=== PATIENT | male | born 1985 | race Caucasian/White ===

== ENCOUNTER 2017-05-31 12:50 | Inpatient (IN) | payer SELFPAY ==
[~2017-05-31] VITALS: Ht 160 cm; Wt 74.9 kg
[2017-05-31 12:52] VITALS: BP 115/72; PULSE 96; RESP 16; TEMP 99.4; O2SAT 97
[2017-05-31 15:14] LABS: AUTOMATED NEUTROPHIL # 28.3 TH/MM3 (1.8-7.7); BASOPHIL % 0.2 % (0.0-2.0); EOSINOPHIL % 0.1 % (0.0-4.0); HEMATOCRIT 42.3 % (39.0-51.0); LYMPH % 4.2 % (9.0-44.0); LYMPHOCYTE # 1.3 TH/MM3 (1.0-4.8); MEAN CELL VOLUME 90.6 FL (80.0-100.0); MEAN CORPUSCULAR HEMOGLOBIN 29.9 PG (27.0-34.0); MONO % 3.9 % (0.0-8.0); NEUT % 91.6 % (16.0-70.0); PLATELET COUNT 426 TH/MM3 (150-450); RED BLOOD COUNT 4.67 MIL/MM3 (4.50-5.90); RED CELL DISTRIBUTION WIDTH 13.8 % (11.6-17.2); WHITE BLOOD COUNT 30.8 TH/MM3 (4.0-11.0)
[2017-05-31 15:15] LABS: HEMO FLAGS AUTO DIFF
[2017-05-31 15:21] LABS: ALT (GPT) 49 U/L (12-78); ANION GAP 7 MEQ/L (5-15); AST (GOT) 62 U/L (15-37); BICARBONATE 32.6 MEQ/L (21.0-32.0); BLOOD UREA NITROGEN 10 MG/DL (7-18); CHLORIDE 86 MEQ/L (98-107); GLOMERULAR FILTRATION RATE 90 ML/MIN (>89); POTASSIUM 3.1 MEQ/L (3.5-5.1); SODIUM (NA) 126 MEQ/L (136-145)
[2017-05-31 15:24] LABS: ALKALINE PHOSPHATASE 333 U/L (45-117); TOTAL BILIRUBIN ADULT 3.5 MG/DL (0.2-1.0)
--- NOTE | 2017-05-31 15:46 | PD ---
HPI Chief Complaint: Skin Problem Time Seen by Provider: 15:32 Travel History International Travel<30 days: No Contact w/Intl Traveler<30days: No Traveled to known affect area: No History of Present Illness HPI This is a 32-year-old male, who presents today with complaints of right lower extremity pain swelling and warmth 10 days. Patient states it started with slight redness and has increased in size as well as pain level. The patient denies any fevers, chills. 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 There are no other complaints time my examination. [facility] Past Medical History Medical History: Denies Significant Hx Tetanus Vaccination: Unknown Past Surgical History Surgical History: No Previous Surgery Social History Alcohol Use: Yes (occasional) Tobacco Use: No Substance Use: No Allergies-Medications (Allergen,Severity, Reaction): Coded Allergies: No Known Allergies (Unverified , 05/31/17) Reported Meds & Prescriptions Reported Meds & Active Scripts Active No Active Prescriptions or Reported Medications Review of Systems Except as stated in HPI: all other systems reviewed are Neg General / Constitutional: No: Fever, Chills HENT: No: Headaches, Lightheadedness Cardiovascular: No: Chest Pain or Discomfort, Palpitations Respiratory: No: Cough, Shortness of Breath Gastrointestinal: No: Nausea, Vomiting Genitourinary: No: Frequency, Dysuria Musculoskeletal: Positive: Edema (right lower extremity), Pain (right lower extremity) Skin: Positive Change in Pigmentation, Positive Lesions (vesicles of the right lower extremity) Neurologic: No: Weakness, Dizziness, Headache Psychiatric: No: Substance Abuse (denies) Physical Exam Narrative GENERAL: Well-developed well-nourished male in no acute respiratory distress. SKIN: Focused skin exam on the patient's right lower shimmy shows significant edema with vesicular findings on the anterior tib-fib distribution. The patient has warmth to the touch. It appears to be cellulitic in nature. Cap refill is less than 3 seconds on his toes. He does have palpable dorsalis pedis pulses. HEAD: Atraumatic. Normocephalic. EYES: Pupils equal and round. Mild scleral icterus. No injection or drainage. ENT: No nasal bleeding or discharge. Mucous membranes pink and moist. NECK: Trachea midline. Supple CARDIOVASCULAR: Regular rate and rhythm. No murmur appreciated. RESPIRATORY: No accessory muscle use. Clear to auscultation. Breath sounds equal bilaterally. GASTROINTESTINAL: Abdomen soft, non-tender, nondistended. Hepatic and splenic margins not palpable. MUSCULOSKELETAL: No obvious deformities. Edema, warmth, redness of the right lower extremity from the knee below. NEUROLOGICAL: Awake and alert. No obvious cranial nerve deficits. Motor grossly within normal limits. 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 PSYCHIATRIC: Appropriate mood and affect; insight and judgment normal. Data Data Last Documented VS Vital Signs Date Time Temp Pulse Resp B/P (MAP) Pulse Ox O2 Delivery O2 Flow Rate FiO2 05/31/17 12:52 99.4 96 16 115/72 (86) 97 Orders Orders Complete Blood Count With Diff (05/31/17 13:48) Comprehensive Metabolic Panel (05/31/17 13:48) Lactic Acid Sepsis Protocol (05/31/17 13:48) Blood Culture (05/31/17 13:48) Iv Access Insert/Monitor (05/31/17 13:48) Vancomycin Inj (Vancomycin Inj) (05/31/17 16:00) Tetanus/Diphtheria Tox Adult (Tetanus/Di (05/31/17 16:00) Us Leg Venous Doppler (05/31/17 16:01) Admit Order (Ed Use Only) (05/31/17 16:08) Labs Laboratory Tests Test 05/31/17 14:20 05/31/17 14:22 White Blood Count 30.8 TH/MM3 Red Blood Count 4.67 MIL/MM3 Hemoglobin 14.0 GM/DL Hematocrit 42.3 % Mean Corpuscular Volume 90.6 FL Mean Corpuscular Hemoglobin 29.9 PG Mean Corpuscular Hemoglobin Concent 33.0 % Red Cell Distribution Width 13.8 % Platelet Count 426 TH/MM3 Mean Platelet Volume 8.6 FL Neutrophils (%) (Auto) 91.6 % Lymphocytes (%) (Auto) 4.2 % Monocytes (%) (Auto) 3.9 % Eosinophils (%) (Auto) 0.1 % Basophils (%) (Auto) 0.2 % Neutrophils # (Auto) 28.3 TH/MM3 Lymphocytes # (Auto) 1.3 TH/MM3 Monocytes # (Auto) 1.2 TH/MM3 Eosinophils # (Auto) 0.0 TH/MM3 Basophils # (Auto) 0.0 TH/MM3 CBC Comment AUTO DIFF Blood Urea Nitrogen 10 MG/DL Creatinine 0.96 MG/DL Random Glucose 113 MG/DL Total Protein 8.0 GM/DL Albumin 1.9 GM/DL Calcium Level 8.2 MG/DL Alkaline Phosphatase 333 U/L Aspartate Amino Transf (AST/SGOT) 62 U/L Alanine Aminotransferase (ALT/SGPT) 49 U/L Total Bilirubin 3.5 MG/DL Sodium Level 126 MEQ/L Potassium Level 3.1 MEQ/L Chloride Level 86 MEQ/L Carbon Dioxide Level 32.6 MEQ/L Anion Gap 7 MEQ/L Estimat Glomerular Filtration Rate 90 ML/MIN Lactic Acid Level 2.4 mmol/L [facility] Medical Decision Making Medical Screen Exam Complete: Yes Emergency Medical Condition: Yes Differential Diagnosis Cellulitis versus DVT versus lymphedema Narrative Course 32-year-old male presents with right lower extremity redness warmth and swelling. The patient has an obvious cellulitis. The patient's white count 33, 000. Cultures are pending at this time. I will start him on vancomycin. There is a call out to the admitting service for admission. Sepsis Criteria SIRS Criteria (2 or more): Heart rate over 90, WBC > 11716, < 4000 or > 10% bands Sepsis Criteria (SIRS+source): Infect source susp/known Severe Sepsis (+one): Lactate >2 Diagnosis Primary Impression: Sepsis Additional Impressions: Cellulitis of right lower extremity Leukocytosis Hyponatremia Hypokalemia Scripts No Active Prescriptions or Reported Meds Tyrese Ulloa MD May 31, 2017 15:46
[2017-05-31] MEDS ORDERED: TETANUS/DIPHTHERIA TOXOID ADULT 0.5 ML VIAL IM ONE (16:00)
[2017-05-31] MEDS ORDERED: VANCOMYCIN INJ 1,000 MG in SODIUM CHLOR 0.9% 250 ML INJ 250 ML IV ONE (16:00)
--- NOTE | 2017-05-31 16:18 | HHI.HP ---
HPI Service Family Medicine Primary Care Physician No Primary Care Physician Admission Diagnosis right lower extremity cellulitis, hyponatremia, hypokalemia Diagnoses: International Travel<30 Days: No Contact w/Intl Traveler<30days: No Known Affected Area: No History of Present Illness Patient is a 32 year old man presenting to the ED for evaluation of right lower extremity redness and swelling. He states the Thursday before last he started feeling pain in his right leg around 7pm. He did not notice erythema or swelling at this time. He went to work on thursday and noticed swelling and could not continue working due to worsening pain. He denies any trauma, cuts, or abrasions to the right leg. He states last Thursday patient was taken to [facility] and patient was sent home with medication for pain control however states was not sent home with any antibiotics to take. He endorses intermittent subjective fevers recently. He denies any previous history of cellulitis. Denies h/o of blood clots. He states he has not had any pus or other drainage anywhere along his right leg. Currently he states his pain is 10/ 10. (Eugene Ellis MD R2) Review of Systems Constitutional: COMPLAINS OF: Fever, DENIES: Dizziness Respiratory: DENIES: Cough, Sputum production, Shortness of breath Cardiovascular: COMPLAINS OF: Lower Extremity Edema, DENIES: Chest pain, Palpitations Gastrointestinal: DENIES: Abdominal pain, Black stools, Bloody stools, Constipation, Diarrhea, Nausea, Vomiting Genitourinary: DENIES: Hematuria, Dysuria Neurologic: DENIES: Headache (Eugene Ellis MD R2) Past Family Social History Past Medical History Patient without a previous PCP No medical history to report Past Surgical History Denies (Eugene Ellis MD R2) Allergies: Coded Allergies: No Known Allergies (Unverified , 05/31/17) Family History Pt states mother and father are both healthy Social History Tobacco: denies Etoh: social occasions only Illicit drug use: denies Lives at home with cousin and two other friends (Eugene Ellis MD R2) Physical Exam Vital Signs Vital Signs Date Time Temp Pulse Resp B/P (MAP) Pulse Ox O2 Delivery O2 Flow Rate FiO2 05/31/17 12:52 99.4 96 16 115/72 (86) 97 Physical Exam GENERAL: NAD, lying comfortably in bed NEURO: Alert. 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 Motor grossly normal. SKIN: Warm and dry. Significant redness of right lower extremity from mid thigh down to mid right foot. No active drainage or open wounds anywhere. 2+ edema of RLE. Painful to palpation. Several papular types lesions present throughout right lower extremity erythema. LLE without lesions. HEAD: Normocephalic. Atraumatic. EYES: PERRL. EOMI. No scleral icterus. No injection or drainage. ENT: No nasal drainage. Moist mucous membranes. No oral ulcers or lesions. NECK: Supple, trachea midline. No JVD or lymphadenopathy. CARDIOVASCULAR: Regular rate and rhythm without murmurs, rubs, or gallops. Peripheral pulses 2+. Capillary refill < 2 seconds. RESPIRATORY: Breath sounds clear to auscultation and equal bilaterally, without wheezes, rales, or rhonchi. No accessory muscle use. GASTROINTESTINAL: Abdomen soft, nontender, nondistended, normal BS. No organomegaly or masses. No rebound tenderness. No guarding. MUSCULOSKELETAL: No lower extremity edema. Normal range of motion. BACK: Nontender without obvious deformity. Laboratory Laboratory Tests Test 05/31/17 14:20 05/31/17 14:22 White Blood Count 30.8 Red Blood Count 4.67 Hemoglobin 14.0 Hematocrit 42.3 Mean Corpuscular Volume 90.6 Mean Corpuscular Hemoglobin 29.9 Mean Corpuscular Hemoglobin Concent 33.0 Red Cell Distribution Width 13.8 Platelet Count 426 Mean Platelet Volume 8.6 Neutrophils (%) (Auto) 91.6 Lymphocytes (%) (Auto) 4.2 Monocytes (%) (Auto) 3.9 Eosinophils (%) (Auto) 0.1 Basophils (%) (Auto) 0.2 Neutrophils # (Auto) 28.3 Lymphocytes # (Auto) 1.3 Monocytes # (Auto) 1.2 Eosinophils # (Auto) 0.0 Basophils # (Auto) 0.0 CBC Comment AUTO DIFF Blood Urea Nitrogen 10 Creatinine 0.96 Random Glucose 113 Total Protein 8.0 Albumin 1.9 Calcium Level 8.2 Alkaline Phosphatase 333 Aspartate Amino Transf (AST/SGOT) 62 Alanine Aminotransferase (ALT/SGPT) 49 Total Bilirubin 3.5 Sodium Level 126 Potassium Level 3.1 Chloride Level 86 Carbon Dioxide Level 32.6 Anion Gap 7 Estimat Glomerular Filtration Rate 90 Lactic Acid Level 2.4 Date/Time Source Procedure Growth Status 05/31/17 14:21 Blood Peripheral Aerobic Blood Culture Pending Received 05/31/17 14:21 Blood Peripheral Anaerobic Blood Culture Pending Received (Eugene Ellis MD R2) Result Diagram: 05/31/17 1420 05/31/17 1420 Septic Shock Reassessment Heart: Regular rate and rhythm Lungs: Clear Skin: Warm, Dry Peripheral Pulses: Bounding Right Radial Bounding Left Radial Bounding Right Dorsalis Pedis Bounding Left Dorsalis Pedis Bounding Right Posterior Tibial Bounding Left Posterior Tibial Capillary Refill: <2 seconds (Eugene Ellis MD R2) Caprini VTE Risk Assessment Caprini VTE Risk Assessment: No/Low Risk (score <= 1) Caprini Risk Assessment Model Point Value = 1 Point Value = 2 Point Value = 3 Point Value = 5 Age 41-60 Minor surgery BMI > 25 kg/m2 Swollen legs Varicose veins or History of unexplained or recurrent spontaneous Oral contraceptives or hormone replacement Sepsis (< 1 month) Serious lung disease, including pneumonia (< 1 month) Abnormal pulmonary function Acute myocardial infarction Congestive heart failure (< 1 month) History of inflammatory bowel disease Medical patient at bed rest Age 61-74 Arthroscopic surgery Major open surgery (> 45 min) Laparoscopic surgery (> 45 min) Malignancy Confined to bed (> 72 hours) Immobilizing plaster cast Central venous access Age >= 75 History of VTE Family history of VTE Factor V Leiden Prothrombin [id number] Lupus anticoagulant Anticardiolipin antibodies Elevated serum homocysteine Heparin-induced thrombocytopenia Other congenital or acquired thrombophilia Stroke (< 1 month) Elective arthroplasty Hip, pelvis, or leg fracture Acute spinal cord injury (< 1 month) Prophylaxis Regimen Total Risk Factor Score Risk Level Prophylaxis Regimen 0-1 Low Early ambulation 2 Moderate Order ONE of the following: *Sequential Compression Device (SCD) *Heparin 5000 units SQ BID 3-4 Higher Order ONE of the following medications: *Heparin 5000 units SQ TID *Enoxaparin/Lovenox 40 mg SQ daily (WT < 150 kg, CrCl > 30 mL/min) *Enoxaparin/Lovenox 30 mg SQ daily (WT < 150 kg, CrCl > 10-29 mL/min) *Enoxaparin/Lovenox 30 mg SQ BID (WT < 150 kg, CrCl > 30 mL/min) AND/OR *Sequential Compression Device (SCD) 5 or more Highest Order ONE of the following medications: *Heparin 5000 units SQ TID (Preferred with Epidurals) *Enoxaparin/Lovenox 40 mg SQ daily (WT < 150 kg, CrCl > 30 mL/min) *Enoxaparin/Lovenox 30 mg SQ daily (WT < 150 kg, CrCl > 10-29 mL/min) *Enoxaparin/Lovenox 30 mg SQ BID (WT < 150 kg, CrCl > 30 mL/min) AND *Sequential Compression Device (SCD) (Eugene Ellis MD R2) Assessment and Plan Assessment and Plan 32 year old man being admitted with sepsis due to right lower extremity cellulitis. Code Status Full code Discussed Condition With Dr. Bruno (Eugene Ellis MD R2) Attending Attestation THIS CASE WAS DISCUSSED WITH THE RESIDENT PHYSICIANS. I HAVE REVIEWED THE RECORD AND AGREE WITH THE ABOVE NOTE AND PLAN OF CARE WAS DISCUSSED. I HAVE AUTHORIZED THE ORDER FOR ADMISSION TO AN IN-PATIENT STATUS. (Chyna Copeland MD) Problem List: (1) Sepsis ICD Codes: A41.9 - Sepsis, unspecified organism Status: Acute Plan: Patient meeting sepsis criteria on admission source due to right lower extremity cellulitis s/p 1L NS bolus in ED Continue NS at 150 cc/hr Patient started on Vancomycin, dosing per pharmacy consult (2) Cellulitis of right lower extremity ICD Codes: L03.115 - Cellulitis of right lower limb Status: Acute Plan: Plan as above Pain control: - [place] 5/325 po q4h prn pain 1-5; 10/325 q4h prn pain 6-10 - Morphine 4 mg IV q3h prn breakthrough pain Bowel regimen ordered (3) Hyponatremia ICD Codes: E87.1 - Hypo-osmolality and hyponatremia Status: Acute Plan: - NS at 150 cc/hr - Continue to monitor electrolytes (4) Hypokalemia ICD Codes: E87.6 - Hypokalemia Status: Acute Plan: K+ 3.1 on admission, repleted orally with 40 mEq KCL Continue to monitor (5) Nutrition, metabolism, and development symptoms ICD Codes: R63.8 - Other symptoms and signs concerning food and fluid intake Plan: Fluids: NS at 150 cc/hr Electrolytes: plan as above, continue to monitor Nutrition: Regular DVT ppx: Lovenox 40 mg sq q24h (Eugene Ellis MD R2) Physician Certification 2 Midnight Certification Type: Admission for Inpatient Services Order for Inpatient Services The services are ordered in accordance with Medicare regulations or non- Medicare payer requirements, as applicable. In the case of services not specified as inpatient-only, they are appropriately provided as inpatient services in accordance with the 2-midnight benchmark. Estimated LOS (days): 2 days is the estimated time the patient will need to remain in the hospital, assuming treatment plan goals are met and no additional complications. Post-Hospital Plan: Home (Eugene Ellis MD R2) 2 Midnight Certification Type: Admission for Inpatient Services Post-Hospital Plan: Home (Chyna Copeland MD) Eugene Ellis MD R2 May 31, 2017 16:18 Chyna Copeland MD Jun 01, 2017 13:32
[2017-05-31 16:29] LABS: BANDS 5 % (0-6); POLYS (SEG NEUTROPHILS) 89 % (16-70); SCAN/DIFF FINAL DIFF MANUAL; WBC DIFF SAMPLE 100
[2017-05-31 16:30] VITALS: BP 111/61; PULSE 91; RESP 17; O2SAT 97
[2017-05-31 16:52] LABS: LACTIC ACID GHOST NOT REPORTABLE
[2017-05-31] MEDS ORDERED: SENNOSIDES 8.6 MG TAB PO PRN (17:00)
[2017-05-31] MEDS ORDERED: NALOXONE HCL 0.4 MG/ML AMP IV PUSH PRN (17:00)
[2017-05-31] MEDS ORDERED: MAGNESIUM HYDROXIDE SUSP 30 ML CUP PO PRN (17:00)
[2017-05-31] MEDS ORDERED: Vancomycin Consult Pharmacy 1 EA OTHER SCH (17:00)
[2017-05-31] MEDS ORDERED: LACTULOSE SYRUP 20 GM/30 ML CUP PO PRN (17:00)
[2017-05-31] MEDS ORDERED: ONDANSETRON HCL 4 MG/2 ML VIAL IVP PRN (17:00)
[2017-05-31] MEDS ORDERED: SODIUM CHLORIDE 0.9% FLUSH 10 ML FLUSH IV FLUSH PRN (17:00)
[2017-05-31] MEDS ORDERED: BISACODYL 10 MG SUPP RECTAL PRN (17:00)
[2017-05-31] MEDS ORDERED: SODIUM CHLOR 0.9% 1000 ML INJ 1,000 ML IV ONE (17:00)
[2017-05-31] MEDS ORDERED: ACETAMINOPHEN 325 MG TAB PO PRN (17:00)
[2017-05-31] MEDS: ENOXAPARIN SODIUM 40 MG/0.4 ML SYRINGE SQ SCH (17:00)
[2017-05-31] MEDS ORDERED: ACETAMINOPHEN/HYDROcodone 325 MG/5 MG TAB PO PRN (17:00)
[2017-05-31 17:45] VITALS: BP 110/57; PULSE 86; RESP 16; TEMP 100.6; O2SAT 99
--- NOTE | 2017-05-31 18:22 | RADRPT ---
EXAM DATE/TIME: 05/31/2017 17:35 [facility] COMPARISON: No previous studies available for comparison. INDICATIONS : Right leg swelling and pain. MEDICAL HISTORY : Right leg swelling and pain. SURGICAL HISTORY : None. ENCOUNTER: Initial ACUITY: 2 weeks PAIN SCORE: 6/10 LOCATION: Right leg. TECHNIQUE: Venous ultrasound of the leg was performed from the inguinal ligament to the proximal calf. Real-nathaly e, color Doppler and spectral tracing, compression and augmentation techniques were used. FINDINGS: There is normal compressibility of the deep venous system from the inguinal region to the proximal ca lf. No echogenic clot is seen in the lumen of the common femoral, femoral, popliteal, and posterior tibial veins. There is a normal response of the venous system to proximal and distal augmentation an d respiration. An enlarged lymph node is identified in the right inguinal region measuring 5.4 x 2.8 x 1.6 cm in siz e. CONCLUSION: No evidence of DVT. Right inguinal lymphadenopathy. Justin Vázquez MD on May 31, 2017 at 18:19 Board Certified Radiologist. This report was verified electronically.
[2017-05-31] MEDS ORDERED: POTASSIUM CHLORIDE 10 MEQ CONTROLLED RELEASE TAB PO ONE (18:30)
[2017-05-31 18:52] VITALS: PULSE 84
[2017-05-31] MEDS ORDERED: VANCOMYCIN 1,000 MG/NS 250 ML IV ONE ×2 (19:00)
[2017-05-31 19:57] VITALS: PULSE 84
[2017-05-31 20:00] VITALS: BP 119/59; PULSE 84; RESP 16; TEMP 98.2; O2SAT 99
[2017-05-31] MEDS: ACETAMINOPHEN/HYDROcodone 325 MG/10 MG TAB PO PRN (21:07)
[2017-05-31] MEDS: DOCUSATE SODIUM 50 MG/SENNA 8.6 MG TAB PO SCH (21:07)
[2017-05-31] MEDS: SODIUM CHLORIDE 0.9% FLUSH 10 ML FLUSH IV FLUSH SCH (21:08)
[2017-05-31] MEDS: SODIUM CHLOR 0.9% 1000 ML INJ 1,000 ML IV SCH (21:08)
[2017-06-01] VITALS (8 sets, daily range): BP systolic 97–120; BP diastolic 55–72; PULSE 67–89; RESP 16–18; TEMP 97.5–101; O2SAT 96–100
[2017-06-01] MEDS: SODIUM CHLOR 0.9% 1000 ML INJ 1,000 ML IV SCH ×3 (00:18→15:01)
[2017-06-01] MEDS ORDERED: VANCOMYCIN INJ 1,000 MG in SODIUM CHLOR 0.9% 250 ML INJ 250 ML IV SCH (04:00)
[2017-06-01] MEDS: VANCOMYCIN INJ 1,250 MG in SODIUM CHLOR 0.9% 250 ML INJ 250 ML IV SCH ×2 (05:40→22:24)
[2017-06-01] MEDS: ACETAMINOPHEN/HYDROcodone 325 MG/10 MG TAB PO PRN ×3 (05:41→18:04)
[2017-06-01 07:51] LABS: AUTOMATED NEUTROPHIL # 20.5 TH/MM3 (1.8-7.7); BASOPHIL % 0.2 % (0.0-2.0); EOSINOPHIL # 0.2 TH/MM3 (0-0.4); EOSINOPHIL % 0.9 % (0.0-4.0); HEMATOCRIT 35.4 % (39.0-51.0); LYMPH % 4.5 % (9.0-44.0); MEAN CELL VOLUME 90.9 FL (80.0-100.0); MEAN CORPUSCULAR HEMOGLOBIN 30.7 PG (27.0-34.0); MEAN CORPUSCULAR HGB CONC 33.8 % (32.0-36.0); MONO % 4.4 % (0.0-8.0); PLATELET COUNT 408 TH/MM3 (150-450); RED CELL DISTRIBUTION WIDTH 13.9 % (11.6-17.2); WHITE BLOOD COUNT 22.7 TH/MM3 (4.0-11.0)
[2017-06-01 07:57] LABS: HEMO FLAGS AUTO DIFF
[2017-06-01 08:20] LABS: BANDS 18 % (0-6); EOSINOPHILS 1 % (0-4); MYELOCYTES 1 % (0-0); NEUTROPHIL # MANUAL DIFF 20.9 TH/MM3 (1.8-7.7); PLATELET ESTIMATE SMEAR NORMAL (NORMAL); PLATELET MORPHOLOGY NORMAL (NORMAL); POLYS (SEG NEUTROPHILS) 73 % (16-70); SCAN/DIFF FINAL DIFF MANUAL; WBC DIFF SAMPLE 100
[2017-06-01 08:21] LABS: BICARBONATE 31.7 MEQ/L (21.0-32.0); POTASSIUM 3.2 MEQ/L (3.5-5.1)
[2017-06-01] MEDS: DOCUSATE SODIUM 50 MG/SENNA 8.6 MG TAB PO SCH ×2 (08:39→21:12)
[2017-06-01] MEDS: SODIUM CHLORIDE 0.9% FLUSH 10 ML FLUSH IV FLUSH SCH ×2 (08:39→21:00)
[2017-06-01] MEDS ORDERED: POTASSIUM CHLORIDE 10 MEQ CONTROLLED RELEASE TAB PO ONE (08:45)
[2017-06-01] MEDS ORDERED: PIPERACIL-TAZO 4.5 GM PREMIX 100 ML IV SCH (11:00)
--- NOTE | 2017-06-01 11:52 | HHI.FPPN ---
Problem Problem List: (1) Cellulitis of right lower extremity (2) Sepsis (3) Leukocytosis (4) Hyponatremia (5) Hypokalemia Subjective Subjective 32 year old male admitted for cellulitis meeting SIRS criteria -- on the right LE -- ongoing for about 10 days with worsening redness, spread and severe pain. Denies any trauma or feverss. Patient was placed on vanc at admission with minimal improvment in his symptoms. No worsening pain since admission. No chest pain, no SOB Review of Systems negative except as above Past Family Social History Past Medical History Patient without a previous PCP No medical history to report Past Surgical History Denies Allergies: Coded Allergies: No Known Allergies (Unverified , 05/31/17) Family History Pt states mother and father are both healthy Social History Tobacco: denies Etoh: social occasions only Illicit drug use: denies Lives at home with cousin and two other friends [facility] Objective Objective Laboratory Tests - Abnormals Test 05/31/17 14:20 05/31/17 14:22 05/31/17 17:45 06/01/17 06:40 White Blood Count 30.8 TH/MM3 22.7 TH/MM3 Neutrophils (%) (Auto) 91.6 % 90.0 % Lymphocytes (%) (Auto) 4.2 % 4.5 % Neutrophils # (Auto) 28.3 TH/MM3 20.5 TH/MM3 Monocytes # (Auto) 1.2 TH/MM3 1.0 TH/MM3 Neutrophils % (Manual) 89 % 73 % Lymphocytes % 3 % 4 % Neutrophils # (Manual) 29.0 TH/MM3 20.9 TH/MM3 Random Glucose 113 MG/DL Albumin 1.9 GM/DL Calcium Level 8.2 MG/DL 7.8 MG/DL Alkaline Phosphatase 333 U/L Aspartate Amino Transf (AST/SGOT) 62 U/L Total Bilirubin 3.5 MG/DL Sodium Level 126 MEQ/L 134 MEQ/L Potassium Level 3.1 MEQ/L 3.2 MEQ/L Chloride Level 86 MEQ/L 95 MEQ/L Carbon Dioxide Level 32.6 MEQ/L Lactic Acid Level 2.4 mmol/L Red Blood Count 3.90 MIL/MM3 Hemoglobin 12.0 GM/DL Hematocrit 35.4 % Band Neutrophils % 18 % Myelocytes 1 % Vital Signs 05/31/17 05/31/17 05/31/17 05/31/17 12:52 16:30 17:45 18:52 Temp 99.4 100.6 Pulse 96 91 86 84 Resp 16 17 16 B/P (MAP) 115/72 (86) 111/61 (78) 110/57 (74) Pulse Ox 97 97 99 O2 Delivery Room Air 05/31/17 05/31/17 05/31/17 06/01/17 19:57 20:00 20:00 00:00 Temp 98.2 97.5 Pulse 84 84 67 Resp 16 16 B/P (MAP) 119/59 (79) 97/55 (69) Pulse Ox 99 100 O2 Delivery Room Air 06/01/17 06/01/17 06/01/17 06/01/17 00:00 04:00 04:00 08:02 Temp 98.0 97.9 Pulse 74 68 Resp 18 16 B/P (MAP) 101/62 (75) 103/55 (71) Pulse Ox 100 97 O2 Delivery Room Air Room Air Physical exam O. CONSTITUTIONAL/GEN: normally nourished, in NAD -- patient is Welsh speaking -- translation provided by Dr. Chinchilla EYES: conjunctiva normal, PERRLA, EOMI. ENT: Mouth and pharynx normal. NECK: thyroid midline, carotids symmetrical. LUNGS: clear A-P, respiratory effort is normal. CARDIOVASCULAR: RR without murmur or gallop. No significant edema. GI/ABD: soft without masses, without organomegaly. : no CVA tenderness , right LAD in the groin, mobile, rubbery, nontender NEURO: No focal deficits. Gait is normal HEME/LYMPH: no bruising, petechia or significant adenopathy MUSC: back is normal in appearance. Right LE with erythema, edema, warmth circumferential from the midthigh to the ankle, vesicles throughout the LE, significant swelling over the right knee, with limited flexion of the knee, no creipits but very boggy in nature, no tenseness in the tissue, right ankle with significant swelling over the medial aspect of the ankle as well. boggy, no crepitus, no true fluctuance PSYCH/MENTAL STATUS: Alert and oriented x 3. Assessment Assessment: (1) Cellulitis of right lower extremity (2) Sepsis (3) Leukocytosis (4) Hyponatremia (5) Hypokalemia Assessment 32 year old male with severe cellulitis with SIRS criteria -- minimal improvement since admission. PLAN PLAN 1. Increase the antibiotic coverage -- cont vanc and add zosyn, 2. unroofed vesicle and wound culture sent 3. CT of the leg to assess joint/bone involvement. 4. supportive care with pain meds and IVF Patient was seen and dw the resident team -- Dr. Ellis, Dr. Chinchilla, Dr. Bruno. Chyna Copeland MD Jun 01, 2017 11:52
[2017-06-01] MEDS ORDERED: diphenhydrAMINE HCL 50 MG/ML VIAL IV PUSH PRN (16:15)
[2017-06-01] MEDS: metroNIDAZOLE 500 MG INJ 100 ML IV SCH (18:04)
[2017-06-01] MEDS: ENOXAPARIN SODIUM 40 MG/0.4 ML SYRINGE SQ SCH (18:04)
[2017-06-01] MEDS ORDERED: IOHEXOL 350 MG/ML 10 ML VIAL (for RAD DIAG) IVCONTRAST ONE (19:42)
[2017-06-01] MEDS: CIPROFLOXACIN 400 MG PREMIX 200 ML IV SCH (21:12)
--- NOTE | 2017-06-01 21:37 | RADRPT ---
EXAM DATE/TIME: 06/01/2017 19:21 [facility] COMPARISON: No previous studies available for comparison. INDICATIONS : Right leg swelling for ten days IV CONTRAST: 71 cc Omnipaque 350 (iohexol) IV RADIATION DOSE: 28.32 CTDIvol (mGy) MEDICAL HISTORY : None SURGICAL HISTORY : None. ENCOUNTER: Initial ACUITY: 2 weeks PAIN SCALE: 7/10 LOCATION: Right Leg TECHNIQUE: Volumetric scanning of the tibia and fibula was performed. Using automated exposure control and adju stment of the mA and/or kV according to patient size, radiation dose was kept as low as reasonably ac hievable to obtain optimal diagnostic quality images. DICOM format image data is available [facility] for review and comparison. FINDINGS: There is an elongated anterior area of cystic loculated mass between the skin subcutaneous tissue and the muscle along the fascial plane extending from the region of the patella almost to the ankle. Thi s does abut the proximal one third of the anterior medial tibia without bony destructive change or ly tic change. There is a multiloculated inflammatory mass likely abscess. No radiopaque foreign body is noted. CONCLUSION: Elongated anterior inflammatory multiloculated cystic-type mass extending from the l evel of the knee down almost to the ankle between the subcutaneous skin tissues and muscle along the fascial plane. Appearance is that most likely of an abscess. This does abut without destructive fonseca e the bone of the tibia proximal one third anterior medially. Blaine Rivera MD on June 01, 2017 at 21:32 Board Certified Radiologist. This report was verified electronically.
[2017-06-02] VITALS (7 sets, daily range): BP systolic 113–142; BP diastolic 57–75; PULSE 76–95; RESP 16–20; TEMP 97.9–101.5; O2SAT 93–98
[2017-06-02] MEDS: metroNIDAZOLE 500 MG INJ 100 ML IV SCH ×3 (01:43→19:58)
[2017-06-02] MEDS: ACETAMINOPHEN/HYDROcodone 325 MG/10 MG TAB PO PRN ×4 (01:55→20:15)
[2017-06-02] MEDS: SODIUM CHLOR 0.9% 1000 ML INJ 1,000 ML IV SCH ×4 (03:36→16:45)
[2017-06-02] MEDS ORDERED: PHARMACY ORDERED LAB ONE (05:45)
[2017-06-02] MEDS: CIPROFLOXACIN 400 MG PREMIX 200 ML IV SCH ×2 (05:47→23:09)
[2017-06-02] MEDS: VANCOMYCIN INJ 1,250 MG in SODIUM CHLOR 0.9% 250 ML INJ 250 ML IV SCH (07:38)
[2017-06-02 08:08] LABS: AUTOMATED NEUTROPHIL # 16.3 TH/MM3 (1.8-7.7); BASOPHIL % 0.2 % (0.0-2.0); EOSINOPHIL # 0.1 TH/MM3 (0-0.4); EOSINOPHIL % 0.6 % (0.0-4.0); HEMATOCRIT 36.1 % (39.0-51.0); HEMO FLAGS DIFF FINAL; LYMPH % 5.3 % (9.0-44.0); MEAN CORPUSCULAR HGB CONC 34.1 % (32.0-36.0); MONO % 3.5 % (0.0-8.0); NEUT % 90.4 % (16.0-70.0); PLATELET COUNT 493 TH/MM3 (150-450); RED BLOOD COUNT 3.97 MIL/MM3 (4.50-5.90); RED CELL DISTRIBUTION WIDTH 13.8 % (11.6-17.2)
--- NOTE | 2017-06-02 08:27 | HHI.FPPN ---
Subjective Remarks No acute events overnight. Tmax 101.0F past 24 hours. Patient states his pain is well controlled. Denies any worsening erythema or swelling. No draining lesions. Denies chest pain, SOB. (Eugene Ellis MD R2) Objective Vitals Vital Signs Date Time Temp Pulse Resp B/P (MAP) Pulse Ox O2 Delivery O2 Flow Rate FiO2 06/02/17 05:13 97.9 76 18 119/73 (88) 96 06/02/17 00:51 99.0 78 18 122/73 (89) 96 06/01/17 21:00 Room Air 06/01/17 21:00 89 06/01/17 20:21 97.8 84 18 118/72 (87) 98 06/01/17 16:02 101.0 89 17 120/68 (85) 96 06/01/17 12:02 99.5 88 17 118/64 (82) 98 I/O 06/01/17 06/01/17 06/01/17 06/02/17 06/02/17 06/02/17 06:59 14:59 22:59 06:59 14:59 22:59 Intake Total 1480 ml 70 ml 2190 ml 2282.5 ml Output Total 1250 ml 1050 ml Balance 230 ml 70 ml 1140 ml 2282.5 ml Intake Oral 480 ml 720 ml 720 ml IV Total 1000 ml 70 ml 1470 ml 1562.5 ml Output Urine Total 1250 ml 1050 ml # Bowel Movements 0 0 (Eugene Ellis MD R2) Result Diagram: 06/02/17 0722 06/01/17 0640 Objective Remarks GEN: NAD, lying comfortably in bed EYES: conjunctiva normal, EOMI. ENT: Mouth and pharynx normal. NEURO: Alert. Speech normal, Angolan speaking, translation provided by Dr. Bruno. No focal deficits. CARDIOVASCULAR: RRR, no m/r/g. Peripheral pulses 2+ including left PT pulse. LUNGS: CTAB, no w/r/r GI: soft, nontender, nd : Right LAD in the groin, mobile, rubbery, nontender. No left inguinal LAD. HEME/LYMPH: no bruising, petechia or significant adenopathy MUSC: Right LE with erythema, edema, warmth circumferential from the mid thigh to the ankle, vesicles throughout the LE, significant swelling over the right knee, with limited flexion of the right knee seems to be more limited than prior examination yesterday, no crepitus but very boggy in nature, right ankle with significant swelling over the medial aspect of the ankle as well. Ankle is boggy, but no fluctuance or crepitus. (Eugene Ellis MD R2) A/P Assessment and Plan 32 year old man admitted with sepsis due to right lower extremity cellulitis and abscess formation. (Eugene Ellis MD R2) Attending Attestation Patient seen and examined. Case reviewed and discussed with the resident team. Agree with plan of care as discussed with me and documented in the resident note. (Chyna Copeland MD) Problem List: (1) Abscess of right lower extremity ICD Codes: L02.415 - Cutaneous abscess of right lower limb Plan: CT of right lower extremity with findings of anterior inflammatory multiloculated cystic-type mass from the knee down to ankle between subcutaneous skin tissues and muscle along fascial plane most likely abscess formation Orthopedic surgery consulted for I&D Infectious Disease consult appreciated Antibiotic history: - Vancomycin 1500 mg IV q12h, started 05/31 - Ciprofloxacin 400 mg IV q12h, started 06/01 - Flagyl 500 mg IV q8h, started 06/01 - Discontinued Zosyn 4.5gm IV one dose given on, discontinued after patient had reported mild hives-like reaction Pain control: - [place] 5/325 po q4h prn pain 1-5; 10/325 q4h prn pain 6-10 - Morphine 4 mg IV q3h prn breakthrough pain Bowel regimen ordered (2) Sepsis ICD Codes: A41.9 - Sepsis, unspecified organism Status: Acute Plan: Patient met sepsis criteria on admission source due to right lower extremity cellulitis and abscess Plan as above (3) Hyponatremia ICD Codes: E87.1 - Hypo-osmolality and hyponatremia Status: Acute Plan: - NS at 150 cc/hr - Continue to monitor electrolytes (4) Hypokalemia ICD Codes: E87.6 - Hypokalemia Status: Acute Plan: Continue to monitor, replete orally as needed (5) Nutrition, metabolism, and development symptoms ICD Codes: R63.8 - Other symptoms and signs concerning food and fluid intake Plan: Fluids: NS at 150 cc/hr Electrolytes: plan as above, continue to monitor Nutrition: Regular, NPO after MN ahead of I&D by orthopedic surgery DVT ppx: Hold ppx Lovenox today ahead of surgery tomorrow (Eugene Ellis MD R2) Eugene Ellis MD R2 Jun 02, 2017 08:27 Chyna Copeland MD Jun 02, 2017 12:44
[2017-06-02 08:32] LABS: ANION GAP 8 MEQ/L (5-15); AST (GOT) 48 U/L (15-37); BICARBONATE 31.1 MEQ/L (21.0-32.0); BLOOD UREA NITROGEN 7 MG/DL (7-18); CHLORIDE 93 MEQ/L (98-107); GLOMERULAR FILTRATION RATE 120 ML/MIN (>89); POTASSIUM 3.3 MEQ/L (3.5-5.1); SODIUM (NA) 132 MEQ/L (136-145)
[2017-06-02 08:33] LABS: ALT (GPT) 57 U/L (12-78)
[2017-06-02 08:36] LABS: ALKALINE PHOSPHATASE 268 U/L (45-117); TOTAL BILIRUBIN ADULT 1.4 MG/DL (0.2-1.0); VANCOMYCIN TROUGH 11.3 MCG/ML (5.0-10.0)
[2017-06-02] MEDS: SODIUM CHLORIDE 0.9% FLUSH 10 ML FLUSH IV FLUSH SCH ×2 (09:00→20:15)
[2017-06-02] MEDS: DOCUSATE SODIUM 50 MG/SENNA 8.6 MG TAB PO SCH ×2 (09:08→20:15)
--- NOTE | 2017-06-02 11:01 | PD.ORT.PN ---
Subjective Subjective Remarks s/p 10-14 day history of right leg pain and swelling. been managed on floor with Abx. progressing swelling and pain. reports pain in knee and difficulty bending or weight bearing. patient reports he ate breakfast at 0800. Objective Vitals Vital Signs Date Time Temp Pulse Resp B/P (MAP) Pulse Ox O2 Delivery O2 Flow Rate FiO2 06/02/17 08:00 100.0 93 18 117/65 (82) 97 06/02/17 05:13 97.9 76 18 119/73 (88) 96 06/02/17 00:51 99.0 78 18 122/73 (89) 96 06/01/17 21:00 Room Air 06/01/17 21:00 89 06/01/17 20:21 97.8 84 18 118/72 (87) 98 06/01/17 16:02 101.0 89 17 120/68 (85) 96 06/01/17 12:02 99.5 88 17 118/64 (82) 98 I/O 06/01/17 06/01/17 06/01/17 06/02/17 06/02/17 06/02/17 06:59 14:59 22:59 06:59 14:59 22:59 Intake Total 1480 ml 70 ml 2190 ml 2282.5 ml 262.5 ml Output Total 1250 ml 1050 ml Balance 230 ml 70 ml 1140 ml 2282.5 ml 262.5 ml Intake Oral 480 ml 720 ml 720 ml IV Total 1000 ml 70 ml 1470 ml 1562.5 ml 262.5 ml Output Urine Total 1250 ml 1050 ml # Bowel Movements 0 0 Result Diagram: 06/02/1772106/02/17721 Objective Remarks RLE: 3+ swelling of RLE from knee to ankle. noted erythema of leg that is clearly demarcated. noted fluctuance of prepatella bursa and proximal/midshaft tibia along medial border. noted swelling of ankle. nvi Assessment & Plan Assessment and Plan 1) Cellulitis/Abscess of Right Lower Leg -patient will need I&D of right leg. however, patient ate breakfast this AM -regular diet today and npo after MN -will plan to go to OR with either Dr Krishnamurthy or Dr Mackey tomorrow -consents given to nurse. need to be signed by patient. -formal consult to follow tomorrow Shawn Ellison Jun 02, 2017 11:01
[2017-06-02] MEDS ORDERED: POTASSIUM CHLORIDE 10 MEQ CONTROLLED RELEASE TAB PO ONE (12:15)
--- NOTE | 2017-06-02 15:31 | PD.ID.CON ---
History of Present Illness Service ID Consult Requested By Dr Mackey Reason for Consult RLE abscess Primary Care Physician No Primary Care Physician Diagnoses: History of Present Illness 32 yo luxembourgish only speaking male History obtained thru a luxembourgish sopeaking nurse 32 yo male no med history developped pain, redness and swelling of his RLE NO preceding trauma + some fever deies other c/o He was started on zosyn in ER and he developped some pruritic rash , ? hives (dw Dr Ellis) He was switched to cipto, flgyl and vanco His smx improved - per pt pain and swelling getting better an redness is less than marked borders RLE CT showed Elongated anterior inflammatory multiloculated cystic-type mass extending from the level of the knee down almost to the ankle between the subcutaneous skin tissues and muscle along the fascial plane, likely abscess He preented with WBC of 30 K which improved by today down to 18K He has liow grade fever with Tmax of 101 Ortho consulted, plan for I+D today Review of Systems Except as stated in HPI: all other systems reviewed are Neg Past Family Social History Allergies: Coded Allergies: piperacillin (Verified Allergy, Intermediate, Hives, 06/02/17) tazobactam (Verified Allergy, Intermediate, Hives, 06/02/17) Past Medical History NOne Past Surgical History none Active Ordered Medications Medications where reviewed in EMR Antibiotics Include: cipro flagyl vanco Family History reviewed non contributory Social History No Tobacco. No ETOH. No Illicit Drugs. In [place] 10 yrs, no tavel within that period Physical Exam Vital Signs Vital Signs Date Time Temp Pulse Resp B/P (MAP) Pulse Ox O2 Delivery O2 Flow Rate FiO2 06/02/17 12:00 99.2 79 20 113/61 (78) 98 06/02/17 08:00 100.0 93 18 117/65 (82) 97 06/02/17 08:00 88 06/02/17 07:00 Room Air 06/02/17 05:13 97.9 76 18 119/73 (88) 96 06/02/17 00:51 99.0 78 18 122/73 (89) 96 06/01/17 21:00 Room Air 06/01/17 21:00 89 06/01/17 20:21 97.8 84 18 118/72 (87) 98 06/01/17 16:02 101.0 89 17 120/68 (85) 96 Physical Exam CONSTITUTIONAL/GENERAL: This is an adequately nourished patient, in no apparent distress. TUBES/LINES/DRAINS: SKIN: No jaundice, rashes, or lesions. Skin temperature appropriate. Not diaphoretic. HEAD: Atraumatic. Normocephalic. EYES: Pupils equal and round and reactive. Extraocular motions intact. No scleral icterus. No injection or drainage. Fundi not examined. ENT: Hearing grossly normal. Nose without bleeding or purulent drainage. Oral mucosae moist without visible erythema, exudates, masses, or lesions. NECK: Trachea midline. Supple, nontender. CARDIOVASCULAR: Regular rate and rhythm without murmurs, gallops, or rubs. No JVD. Peripheral pulses symmetric. RESPIRATORY/CHEST: Symmetric, unlabored respirations. Clear to auscultation. Breath sounds equal bilaterally. No wheezes, rales, or rhonchi. GASTROINTESTINAL: Abdomen soft, non-tender, nondistended. No hepato-splenomegaly , or palpable masses. No guarding. Bowel sounds present. GENITOURINARY: Without palpable bladder distension. MUSCULOSKELETAL: Extremities without clubbing, cyanosis, No mottling or clubbing. STATUS LOCALIS: RLE with tight 3+ edema and erythema expanding from foot to above the knee, more prominen t posteriorly Toes well perfsed + Markedly enlarged (3-4 cm) R inguinal lymph node, tender to palpation + large effsuion of R kn ee noted LYMPHATICS: No palpable cervical axillae or supraclavicular adenopathy. Unilateral tende r R inguinal lymphadenopathy NEUROLOGICAL: Awake and alert. Motor and sensory grossly within normal limits. Follows commands. Clear speech . Moves all extremities. PSYCHIATRIC: No obvious anxiety/depression. no apparent hallucinations or other psychotic thought process. Laboratory Laboratory Tests Test 06/02/17 07:22 White Blood Count 18.0 Red Blood Count 3.97 Hemoglobin 12.3 Hematocrit 36.1 Mean Corpuscular Volume 91.0 Mean Corpuscular Hemoglobin 31.0 Mean Corpuscular Hemoglobin Concent 34.1 Red Cell Distribution Width 13.8 Platelet Count 493 Mean Platelet Volume 7.9 Neutrophils (%) (Auto) 90.4 Lymphocytes (%) (Auto) 5.3 Monocytes (%) (Auto) 3.5 Eosinophils (%) (Auto) 0.6 Basophils (%) (Auto) 0.2 Neutrophils # (Auto) 16.3 Lymphocytes # (Auto) 1.0 Monocytes # (Auto) 0.6 Eosinophils # (Auto) 0.1 Basophils # (Auto) 0.0 CBC Comment DIFF FINAL Differential Comment Blood Urea Nitrogen 7 Creatinine 0.75 Random Glucose 98 Total Protein 6.8 Albumin 1.6 Calcium Level 8.4 Alkaline Phosphatase 268 Aspartate Amino Transf (AST/SGOT) 48 Alanine Aminotransferase (ALT/SGPT) 57 Total Bilirubin 1.4 Sodium Level 132 Potassium Level 3.3 Chloride Level 93 Carbon Dioxide Level 31.1 Anion Gap 8 Estimat Glomerular Filtration Rate 120 Vancomycin Level Trough 11.3 Date/Time Source Procedure Growth Status 05/31/17 14:21 Blood Peripheral Aerobic Blood Culture - Preliminary NO GROWTH IN 2 DAYS Resulted 05/31/17 14:21 Blood Peripheral Anaerobic Blood Culture - Preliminary NO GROWTH IN 2 DAYS Resulted Result Diagram: 06/02/17 0722 06/02/17 0722 Imaging Last Impressions Lower Extremity CT 06/01/17 0000 Signed Impressions: Service Date/Time: Thursday, June 01, 2017 19:21 - CONCLUSION: Elongated anterior inflammatory multiloculated cystic-type mass extending from the level of the knee down almost to the ankle between the subcutaneous skin tissues and muscle along the fascial plane. Appearance is that most likely of an abscess. This does abut without destructive change the bone of the tibia proximal one third anterior medially. Blaine Rivera MD Lower Extremity Ultrasound 05/31/17 1601 Signed Impressions: Service Date/Time: Wednesday, May 31, 2017 17:35 - CONCLUSION: No evidence of DVT. Right inguinal lymphadenopathy. Justin Vázquez MD Assessment and Plan Assessment and Plan Complicated RLE skin and sof ttissue infection, very large abscess, no e/o bone involement - likely staph or strep - plan to OR today Leukocytosis, leukemoid reaciton of 30 K on presentation Fever High grade penicliin allergic reaction, hives - Will cont cipro, flagyl and vancomycin at this point - Agree wtj plan of ortho for I+D - further abx rec's per clx report Demetria Tate MD Jun 02, 2017 15:31
[2017-06-02] MEDS: VANCOMYCIN INJ 1,500 MG in SODIUM CHLORID 0.9% 500 ML INJ 500 ML IV SCH (16:46)
[2017-06-02] MEDS: MORPHINE SULFATE 4 MG/ML INJ IV PUSH PRN (16:51)
[2017-06-03] VITALS: BP 112/68; PULSE 88; RESP 16; TEMP 99.9; O2SAT 96
[2017-06-03] MEDS: SODIUM CHLOR 0.9% 1000 ML INJ 1,000 ML IV SCH ×2 (01:00→12:22)
[2017-06-03] MEDS: metroNIDAZOLE 500 MG INJ 100 ML IV SCH ×3 (02:08→17:35)
[2017-06-03 04:00] VITALS: BP 123/64; PULSE 94; RESP 16; TEMP 102; O2SAT 96
[2017-06-03] MEDS ORDERED: CHLORHEXIDINE GLUCONATE 2 % 1 PACK (2 CLOTHS) TOPICAL PRN (04:00)
[2017-06-03] MEDS ORDERED: LACTATED RINGER'S 1000 ML IV PRN (04:00)
[2017-06-03] MEDS ORDERED: POVIDONE IODINE 5% (ANTISEPSIS KIT) 4 APPLICATIONS EACH NARE PRN (04:00)
[2017-06-03] MEDS ORDERED: SODIUM CHLORID 0.9% 500 ML IV PRN (04:00)
[2017-06-03] MEDS ORDERED: INSULIN HUMAN REGULAR 1,000 UNITS/10 ML VIAL SQ PRN (04:00)
[2017-06-03] MEDS ORDERED: METOPROLOL TARTRATE 25 MG TAB PO PRN (04:00)
[2017-06-03] MEDS: VANCOMYCIN INJ 1,500 MG in SODIUM CHLORID 0.9% 500 ML INJ 500 ML IV SCH ×2 (04:14→15:40)
[2017-06-03] MEDS: CIPROFLOXACIN 400 MG PREMIX 200 ML IV SCH ×3 (06:35→21:41)
[2017-06-03 06:43] VITALS: TEMP 99.2
[2017-06-03] MEDS: SODIUM CHLORIDE 0.9% FLUSH 10 ML FLUSH IV FLUSH SCH ×2 (07:34→20:27)
[2017-06-03 07:43] LABS: HEMATOCRIT 34.9 % (39.0-51.0); MEAN CORPUSCULAR HEMOGLOBIN 31.2 PG (27.0-34.0); MEAN CORPUSCULAR HGB CONC 34.3 % (32.0-36.0); PLATELET COUNT 518 TH/MM3 (150-450); RED BLOOD COUNT 3.83 MIL/MM3 (4.50-5.90); RED CELL DISTRIBUTION WIDTH 13.9 % (11.6-17.2); REVIEW FLAG FINAL; WHITE BLOOD COUNT 17.9 TH/MM3 (4.0-11.0)
--- NOTE | 2017-06-03 07:45 | MB ---
cc: DENI HERNANDEZ DATE OF ADMISSION 05/31/2017 DATE OF CONSULTATION 06/03/2017 REASON FOR CONSULTATION Right leg infection and abscess. CONSULTING PHYSICIAN Dr. Chyna Malik ARTURO Vega is a 32-year-old male who presented to the emergency room with complaints of right leg pain and swelling. He had been feeling pain and swelling for approximately three days prior to presentation. He went to work on Thursday and noticed some swelling which continued to increase. He noticed redness and warmth. He initially went to [facility] and was sent home with pain medication. He says that he was not given antibiotics. He has had intermittent feelings of fevers and chills. He currently has developed fluctuance of the right leg. CT scan revealed probable abscess along the right leg. He is currently awake and alert on the 4th floor. His only complaint is his right leg. PAST MEDICAL HISTORY ILLNESSES None. SURGERIES None. ALLERGIES None. MEDICATIONS None prior to hospitalizations. Please see EMR for complete list of inpatient medications. SOCIAL HISTORY The patient denies tobacco or drug use. He drinks alcohol occasionally. He lives at home with a cousin and two roommates. FAMILY HISTORY Noncontributory. His mother and father are healthy. REVIEW OF SYSTEMS The patient denies headache, visual changes, neck pain, chest pain, shortness of breath, abdominal pain, nausea, vomiting, recent weight loss, numbness or tingling of extremities. He complains of right leg pain. He also describes a feeling of fevers. PHYSICAL EXAMINATION GENERAL: The patient is a well-developed, well-nourished 32-year-old male in no acute distress. He is awake and alert. He is alert and oriented x3. He appears well-developed, well-nourished. VITAL SIGNS: Temperature is 102.0, pulse 94, respirations 16, blood pressure 123/64, O2 sat is 96% on room air. HEAD: The patient is normocephalic. Pupils are equal. NECK: Soft and nontender. Trachea is midline. ABDOMEN: Soft, nontender, nondistended. EXTREMITIES: Examination of the bilateral upper extremities reveals no pain with shoulder, elbow or wrist motion. He has intact sensation in all fingers. He has good capillary refill in all fingers. Skin is intact to both hands. Sound Installation Worker strength is +5 bilaterally. Examination of the left leg reveals no pain with hip, knee or ankle motion. Skin is intact. Dorsalis pedis pulse is palpable. Sensation is intact. Examination of right leg reveals no tenderness around his hip. He has swelling and fluctuance starting at his knee, extending down to the mid-calf. There is some blistering of the skin. Calf compartments are soft. Sensation is intact to the right foot. Dorsalis pedis pulses are palpable. IMAGING STUDIES CT scan of the right lower extremity was reviewed. The CT scan reveals a fluid collection along the anterolateral tibia and calf. IMPRESSION Right leg infection with abscess. PLAN The treatment options were discussed with the patient. At this point I would recommend irrigation and debridement of right lower extremity with possible wound VAC dressing. The risks of surgery included bleeding, infection, injury to arteries, nerves and blood vessels, need for recurrent surgery as well as medical complications including blood clot, stroke, heart attack and . All questions were answered. I will plan on surgery today. A mid-level provider in my office, nurse practitioner or PA, may see this patient on a follow-up basis and continue to implement the objective of this plan including: Starting or adjusting medications, injections of muscle, tendon, bursa or joints, cast application, orthotic or brace application, physical therapy, further radiographic studies including x-ray, MRI, CT, ultrasounds or bone scan, vascular studies, neurologic studies, or other specialist consultations, and proceeding with surgical management as appropriate. MD ANU Vidales/BEAU /7:10 AM /7:25 AM
[2017-06-03 08:12] LABS: ANION GAP 7 MEQ/L (5-15); AST (GOT) 41 U/L (15-37); BICARBONATE 31.5 MEQ/L (21.0-32.0); BLOOD UREA NITROGEN 8 MG/DL (7-18); CHLORIDE 98 MEQ/L (98-107); GLOMERULAR FILTRATION RATE 115 ML/MIN (>89); POTASSIUM 3.7 MEQ/L (3.5-5.1); SODIUM (NA) 136 MEQ/L (136-145)
[2017-06-03 08:20] LABS: ALKALINE PHOSPHATASE 230 U/L (45-117); ALT (GPT) 45 U/L (12-78); TOTAL BILIRUBIN ADULT 1.3 MG/DL (0.2-1.0)
[2017-06-03] MEDS ORDERED: GENTAMICIN SULFATE 80 MG/2 ML VIAL ONE (08:41)
--- NOTE | 2017-06-03 10:08 | PD.OP ---
cc: Hunter Friend MD Operative Report Date of Surgery: Jun 03, 2017 Preoperative Diagnosis: Right thigh and right calf abscesses Postoperative Diagnosis: Procedure: Irrigation and debridement of right thigh abscess, irrigation and debridement of right calf abscess Anesthesia: Gen. Surgeon: Hunter Friend Welder Assembler(s): GOLD Mckeon PA-C The surgical procedure was assisted by my physician veterinary assistant technician. My P.A. presence was necessary throughout this case for the manipulation and positioning of the surgical extremity. My P.A. was assisting me throughout the duration of this procedure. The skill set of a physician veterinary assistant technician was medically necessary to complete this procedure. During the surgical case the neurosurgical nurse was working at the back table and the physician veterinary assistant technician was directly assisting me. Operation and Findings: Patient was seen and evaluated preoperatively. Patient was found to have infection and abscess of the right thigh and right calf. Informed consent was obtained after detailed discussion of risk and benefits of surgery. Operative site was marked. Patient was brought to the operating room. IV sedation and GETA were administered by anesthesiologist. Operative leg was prepped with alcohol followed by Hibiclens and draped in usual sterile fashion. Timeout procedure was performed. The patient is already on scheduled antibiotics.. Procedure began with a 4 inch incision over the lateral thigh. Subcutaneous tissue dissected with Bovie. A large volume of purulent fluid was found within the thigh. The abscess had multiple loculations. The loculations were debrided. Curettes and rongeurs were used to completely debride the abscess.. Specimen was obtained for cultures and sensitivities. Next attention was turned to the right calf. A 3 inch incision was made over the lateral proximal calf and an additional 3 inch incision was made over the medial mid calf. Purulent drainage was found deep in both of these wounds. An excisional debridement was performed. Loculations were debrided. Curettes and rongeurs were used to debride subcutaneous tissue and fascia. After excisional debridement was complete, the wound was thoroughly irrigated with sterile saline via pulsatile lavage.. At this point the wound was clean. At this point it 1 drain was placed into the thigh and a second drain was placed into the calf Subcutaneous tissues closed with 3-0 PDS and skin was closed with 3-0 nylon. A LINDSAY drain was placed into the wound. Sterile dressings were applied. Patient was awakened and transferred to recovery in stable condition. Needle and sponge counts were correct Hunter Friend MD Jun 03, 2017 10:08
[2017-06-03] MEDS ORDERED: MORPHINE SULFATE 4 MG/ML INJ IV PUSH PRN (10:15)
[2017-06-03] MEDS ORDERED: SODIUM CHLORIDE 0.9% FLUSH 5 ML FLUSH IVF PRN (10:15)
[2017-06-03] MEDS ORDERED: Post-op Orders (for Pharmacy) MISC XX ONE (10:15)
[2017-06-03] MEDS ORDERED: GENTAMICIN SULFATE 80 MG/2 ML VIAL IRRIGATION ONE (10:29)
[2017-06-03] MEDS ORDERED: DO NOT ADM ANY ANTICOAGULANT DRUGS PRN (10:49)
[2017-06-03] MEDS ORDERED: ACETAMINOPHEN 1000 MG/100 ML VIAL IV ONE (10:57)
[2017-06-03] MEDS ORDERED: ACETAMINOPHEN 1000 MG/100 ML 100 ML IV ONE (10:57)
[2017-06-03] MEDS ORDERED: *morphine SULFATE 8 MG/ML PERIprocedure ONLY ONE ×2 (10:58→11:15)
[2017-06-03] MEDS ORDERED: PROPOFOL 200 MG/20 ML AMP IV ONE (12:00)
[2017-06-03] MEDS ORDERED: MORPHINE SULFATE 4 MG/ML INJ IV ONE (12:00)
[2017-06-03] MEDS ORDERED: PHENYLEPH/NS 1000 MCG/10 ML SYR IV ONE (12:00)
[2017-06-03] MEDS ORDERED: LIDOCAINE HCL 1% PF 5 ML AMPULE OTHER ONE (12:00)
[2017-06-03] MEDS ORDERED: ONDANSETRON HCL 4 MG/2 ML VIAL IV PUSH ONE (12:00)
[2017-06-03] MEDS: DOCUSATE SODIUM 50 MG/SENNA 8.6 MG TAB PO SCH ×2 (12:18→20:26)
[2017-06-03] MEDS: ACETAMINOPHEN/HYDROcodone 325 MG/10 MG TAB PO PRN ×2 (13:04→20:27)
--- NOTE | 2017-06-03 13:27 | HHI.FPPN ---
Subjective Remarks Patient denies fevers, shortness of breath, or chest pain. States his leg is very painful 04/26 pain. (Katelin Bruno MD R1) Objective Vitals Vital Signs Date Time Temp Pulse Resp B/P (MAP) Pulse Ox O2 Delivery O2 Flow Rate FiO2 06/03/17 11:20 15 06/03/17 11:20 15 06/03/17 11:03 15 06/03/17 11:00 75 15 117/80 (92) 98 Nasal Cannula 2 06/03/17 10:48 98.1 89 20 116/73 (87) 100 Nasal Cannula 3 06/03/17 06:43 99.2 06/03/17 04:00 102.0 94 16 123/64 (83) 96 06/03/17 00:00 99.9 88 16 112/68 (83) 96 06/02/17 20:14 94 06/02/17 20:00 101.5 95 16 142/75 (97) 94 06/02/17 20:00 Room Air 06/02/17 16:00 99.0 88 20 116/57 (76) 93 I/O 06/02/17 06/02/17 06/02/17 06/03/17 06/03/17 06/03/17 07:00 15:00 23:00 07:00 15:00 23:00 Intake Total 2020 ml 362.5 ml 1575 ml 1908 ml 800 ml Output Total 400 ml 950 ml 1250 ml 75 ml Balance 2020 ml -37.5 ml 625 ml 658 ml 725 ml Intake Oral 720 ml 720 ml IV Total 1300 ml 362.5 ml 855 ml 1908 ml 100 ml Other 700 ml Output Urine Total 400 ml 950 ml 1250 ml Estimated Blood Loss 75 ml # Bowel Movements 0 (Katelin Bruno MD R1) Result Diagram: 06/03/17 0635 06/03/17 0635 Objective Remarks GEN: NAD, lying comfortably in bed EYES: conjunctiva normal, EOMI. ENT: Mouth and pharynx normal. NEURO: Alert. Speech normal, Azerbaijani speaking, translation provided by Dr. Bruno. No focal deficits. CARDIOVASCULAR: RRR, no m/r/g. LUNGS: CTAB, no w/r/r GI: soft, nontender, nd : Right LAD in the groin, mobile, rubbery, nontender. No left inguinal LAD. HEME/LYMPH: no bruising, petechia or significant adenopathy MUSC: Right LE bandaged with an ZAIDA-wrap, 2 J-[address] dra[address] in place with blood and serosanguinous fluid. Leg is swollen, barely able to move toes. (Katelin Bruno MD R1) A/P Assessment and Plan 32 year old man admitted with sepsis due to right lower extremity cellulitis and abscess formation POD #0 for I&D. On Cipro and flagyl day 3, Vanc Day 4. Discharge Planning Per ortho recs (Katelin Bruno MD R1) Attending Attestation Patient seen and examined. Case reviewed and discussed with the resident team. Agree with plan of care as discussed with me and documented in the resident note. Patient was seen with the clinical coordinator for the floor and use of the tele-security systems administrator. Patient reports pain but otherwise no symptoms of SOB or CP. He wonders why this happened to him and wonders what the infection could be from. Explained and dwpt that this was a serious infection with a complicated large abscess under the skin which is why this had to be drained. We will continue to treat him with his current antibiotics pending the results of the cultures that were obtained in the OR. Appreciate ortho and ID assistance with this case -PT/Incentive spirometer, pain control and routine post-op care OOB ad beau -- PT to work with patient as well. Continue current therapy until cultures back (Chyna Copeland MD) Problem List: (1) Abscess of right lower extremity ICD Codes: L02.415 - Cutaneous abscess of right lower limb Plan: CT of right lower extremity with findings of anterior inflammatory multiloculated cystic-type mass from the knee down to ankle between subcutaneous skin tissues and muscle along fascial plane most likely abscess formation. I&D performed 06/03. Wound cx ordered. Antibiotic history: - Vancomycin 1500 mg IV q12h, started 05/31 - Ciprofloxacin 400 mg IV q12h, started 06/01 - Flagyl 500 mg IV q8h, started 06/01 - Discontinued Zosyn 4.5gm IV one dose given on, discontinued after patient had reported mild hives-like reaction Pain control: - [place] 5/325 po q4h prn pain 1-5; 10/325 q4h prn pain 6-10 - Morphine 4 mg IV q3h prn breakthrough pain (2) Nutrition, metabolism, and development symptoms ICD Codes: R63.8 - Other symptoms and signs concerning food and fluid intake Plan: Fluids: NS at 150 cc/hr Electrolytes: none Nutrition: Regular diet DVT ppx: Hold ppx Lovenox today ahead of surgery tomorrow (Katelin Bruno MD R1) Katelin Bruno MD R1 Jun 03, 2017 13:27 Chyna Copeland MD Jun 03, 2017 14:27
[2017-06-03] MEDS: MORPHINE SULFATE 4 MG/ML INJ IV PUSH PRN (14:52)
[2017-06-03 15:45] VITALS: BP 102/62; PULSE 78; RESP 18; TEMP 97.9; O2SAT 98
[2017-06-03 20:00] VITALS: BP 108/61; PULSE 87; RESP 20; TEMP 98; O2SAT 96
[2017-06-03 20:01] VITALS: PULSE 100
[2017-06-03] MEDS ORDERED: SODIUM CHLORIDE 0.9% FLUSH 5 ML FLUSH IVF SCH (21:00)
[2017-06-04] VITALS: BP 103/56; PULSE 86; RESP 18; TEMP 98.9; O2SAT 94
[2017-06-04] MEDS: ACETAMINOPHEN/HYDROcodone 325 MG/10 MG TAB PO PRN ×5 (00:08→21:07)
[2017-06-04] MEDS: metroNIDAZOLE 500 MG INJ 100 ML IV SCH ×3 (00:08→16:44)
[2017-06-04] MEDS: SODIUM CHLOR 0.9% 1000 ML INJ 1,000 ML IV SCH ×3 (02:52→16:51)
[2017-06-04] MEDS ORDERED: PHARMACY ORDERED LAB ONE (03:45)
[2017-06-04 04:00] VITALS: BP 99/55; PULSE 73; RESP 20; TEMP 98.3; O2SAT 97
[2017-06-04] MEDS: VANCOMYCIN INJ 1,500 MG in SODIUM CHLORID 0.9% 500 ML INJ 500 ML IV SCH ×2 (04:39→16:44)
[2017-06-04] MEDS: CIPROFLOXACIN 400 MG PREMIX 200 ML IV SCH ×3 (06:55→21:08)
--- NOTE | 2017-06-04 06:57 | PD.ORT.PN ---
Subjective Subjective Remarks s/p I&D right leg - POD 1 -resting comfortably. no new complaints Objective Vitals Vital Signs Date Time Temp Pulse Resp B/P (MAP) Pulse Ox O2 Delivery O2 Flow Rate FiO2 06/04/17 04:00 98.3 73 20 99/55 (70) 97 06/04/17 00:00 98.9 86 18 103/56 (72) 94 06/03/17 20:34 Room Air 06/03/17 20:01 100 06/03/17 20:00 98.0 87 20 108/61 (77) 96 06/03/17 15:45 97.9 78 18 102/62 (75) 98 06/03/17 11:25 97.8 72 16 112/68 (83) 96 Room Air 06/03/17 11:20 15 06/03/17 11:20 15 06/03/17 11:15 74 16 115/75 (88) 95 Room Air 06/03/17 11:03 15 06/03/17 11:00 75 15 117/80 (92) 98 Nasal Cannula 2 06/03/17 10:48 98.1 89 20 116/73 (87) 100 Nasal Cannula 3 I/O 06/03/17 06/03/17 06/03/17 06/04/17 06/04/17 06/04/17 06:59 14:59 22:59 06:59 14:59 22:59 Intake Total 1908 ml 800 ml 715 ml 2095 ml Output Total 1250 ml 195 ml 1150 ml 1220 ml Balance 658 ml 605 ml -435 ml 875 ml Intake Oral 0 ml 480 ml IV Total 1908 ml 100 ml 715 ml 1615 ml Other 700 ml Output Urine Total 1250 ml 1150 ml 1100 ml Drainage Total 120 ml 120 ml Estimated Blood Loss 75 ml # Bowel Movements 0 1 Result Diagram: 06/03/17 0635 06/03/1735 Objective Remarks RLE: dressings clean and dry. intact. NVI. +Drains x 2 Assessment & Plan Assessment and Plan 1) Cellulitis/Abscess of Right Lower Leg s/p I&D - POD 1 -maintain drains. drains will remain for 7-10 days -may begin daily dressing changes of leg POD 3 -WBAT -awaiting cultures for definitive Abx Treatment -appreciate Infectious Dz input on Abx and help tailoring Ellison,Shawn Luis A PA Jun 04, 2017 06:57
[2017-06-04 08:00] VITALS: BP 115/60; PULSE 72; PULSE 76; RESP 16; TEMP 99.1; O2SAT 99
[2017-06-04] MEDS: DOCUSATE SODIUM 50 MG/SENNA 8.6 MG TAB PO SCH ×2 (08:35→21:00)
[2017-06-04 08:36] LABS: BICARBONATE 29.7 MEQ/L (21.0-32.0)
[2017-06-04] MEDS: SODIUM CHLORIDE 0.9% FLUSH 10 ML FLUSH IV FLUSH SCH ×2 (08:36→21:00)
[2017-06-04 09:12] LABS: AUTOMATED NEUTROPHIL # 7.6 TH/MM3 (1.8-7.7); BASOPHIL # 0.1 TH/MM3 (0-0.2); BASOPHIL % 1.2 % (0.0-2.0); EOSINOPHIL # 0.2 TH/MM3 (0-0.4); EOSINOPHIL % 2.2 % (0.0-4.0); HEMATOCRIT 30.8 % (39.0-51.0); HEMO FLAGS AUTO DIFF; LYMPHOCYTE # 1.2 TH/MM3 (1.0-4.8); MEAN CELL VOLUME 91.8 FL (80.0-100.0); MEAN CORPUSCULAR HGB CONC 33.8 % (32.0-36.0); MONO % 5.7 % (0.0-8.0); NEUT % 78.9 % (16.0-70.0); PLATELET COUNT 420 TH/MM3 (150-450); RED BLOOD COUNT 3.35 MIL/MM3 (4.50-5.90); RED CELL DISTRIBUTION WIDTH 13.9 % (11.6-17.2); WHITE BLOOD COUNT 9.7 TH/MM3 (4.0-11.0)
--- NOTE | 2017-06-04 10:01 | HHI.FPPN ---
Subjective Remarks Afebrile overnight. Patient states that he is doing well, good intake/output. States pain is controlled at 6 out of 10. Denies chest pain, shortness of breath , nausea/vomiting no other complaints. (Katelin Bruno MD R1) Objective Vitals Vital Signs Date Time Temp Pulse Resp B/P (MAP) Pulse Ox O2 Delivery O2 Flow Rate FiO2 06/04/17 08:00 99.1 76 16 115/60 (78) 99 06/04/17 04:00 98.3 73 20 99/55 (70) 97 06/04/17 00:00 98.9 86 18 103/56 (72) 94 06/03/17 20:34 Room Air 06/03/17 20:01 100 06/03/17 20:00 98.0 87 20 108/61 (77) 96 06/03/17 15:45 97.9 78 18 102/62 (75) 98 06/03/17 11:25 97.8 72 16 112/68 (83) 96 Room Air 06/03/17 11:20 15 06/03/17 11:20 15 06/03/17 11:15 74 16 115/75 (88) 95 Room Air 06/03/17 11:03 15 06/03/17 11:00 75 15 117/80 (92) 98 Nasal Cannula 2 06/03/17 10:48 98.1 89 20 116/73 (87) 100 Nasal Cannula 3 I/O 06/03/17 06/03/17 06/03/17 06/04/17 06/04/17 06/04/17 07:00 15:00 23:00 07:00 15:00 23:00 Intake Total 1908 ml 800 ml 715 ml 2095 ml Output Total 1250 ml 195 ml 1150 ml 1220 ml Balance 658 ml 605 ml -435 ml 875 ml Intake Oral 0 ml 480 ml IV Total 1908 ml 100 ml 715 ml 1615 ml Other 700 ml Output Urine Total 1250 ml 1150 ml 1100 ml Drainage Total 120 ml 120 ml Estimated Blood Loss 75 ml # Bowel Movements 0 1 (Katelin Bruno MD R1) Result Diagram: 06/04/1765406/04/17654 Objective Remarks GEN: NAD, lying comfortably in bed EYES: conjunctiva normal, EOMI. ENT: Mouth and pharynx normal. NEURO: Alert. Speech normal, Malaysian speaking, translation provided by Dr. Bruno. No focal deficits. CARDIOVASCULAR: RRR, no m/r/g. LUNGS: CTAB, no w/r/r GI: soft, nontender, nd MUSC: Right LE bandaged with an ZAIDA-wrap, 2 J-P drains in place with blood and serosanguinous fluid. Leg is swollen, barely able to move toes. (Katelin Bruno MD R1) A/P Assessment and Plan 32 year old man admitted with sepsis due to right lower extremity cellulitis and abscess formation POD #0 for I&D. On Cipro and flagyl day 4, Vanc Day5. Discharge Planning Per ortho recs (Katelin Bruno MD R1) Attending Attestation Patient seen and examined. Case reviewed and discussed with the resident team. Agree with plan of care as discussed with me and documented in the resident note. (Chyna Copeland MD) Problem List: (1) Abscess of right lower extremity ICD Codes: L02.415 - Cutaneous abscess of right lower limb Plan: Cellulitis/Abscess of Right Lower Leg s/p I&D - POD 1. I&D performed . Wound cx pending Per orthopedics, will maintain drains for 7-10 days. Daily dressing changes start on postop day 3 -IV Vanco day #5, IV Cipro and Flagyl day #4 -Appreciate infectious disease input on antibiotic regimen -Continue [place] and morphine when necessary for pain control Antibiotic history: - Vancomycin 1500 mg IV q12h, started 05/31 - Ciprofloxacin 400 mg IV q12h, started 06/01 - Flagyl 500 mg IV q8h, started 06/01 (2) Anemia ICD Codes: D64.9 - Anemia, unspecified Plan: Normocytic anemia likely secondary to blood loss secondary to surgery versus stress from infection -Hemoglobin today 10.4 (12) (3) Nutrition, metabolism, and development symptoms ICD Codes: R63.8 - Other symptoms and signs concerning food and fluid intake Plan: Fluids: NS at maintenance of 120mls/hr Electrolytes: none Nutrition: Regular diet DVT ppx: Lovenox (Katelin Bruno MD R1) Katelin Bruno MD R1 Jun 04, 2017 10:01 Chyna Copeland MD Jun 04, 2017 13:01
[2017-06-04 12:00] VITALS: BP 116/61; PULSE 78; RESP 16; TEMP 97.6; O2SAT 99
[2017-06-04 16:00] VITALS: BP 103/58; PULSE 77; RESP 16; TEMP 98.6; O2SAT 98
[2017-06-04] MEDS: ENOXAPARIN SODIUM 40 MG/0.4 ML SYRINGE SQ SCH (16:45)
[2017-06-04 20:00] VITALS: BP 106/54; PULSE 68; PULSE 69; RESP 16; TEMP 97.5; O2SAT 97
[2017-06-05] VITALS (7 sets, daily range): BP systolic 107–115; BP diastolic 61–66; PULSE 70–86; RESP 16–18; TEMP 97.2–98.9; O2SAT 97–99
[2017-06-05] MEDS: metroNIDAZOLE 500 MG INJ 100 ML IV SCH ×3 (01:06→17:31)
[2017-06-05] MEDS: ACETAMINOPHEN/HYDROcodone 325 MG/10 MG TAB PO PRN ×5 (01:08→21:10)
[2017-06-05] MEDS: SODIUM CHLOR 0.9% 1000 ML INJ 1,000 ML IV SCH ×3 (03:11→17:30)
[2017-06-05] MEDS: VANCOMYCIN INJ 1,500 MG in SODIUM CHLORID 0.9% 500 ML INJ 500 ML IV SCH (03:12)
[2017-06-05] MEDS: CIPROFLOXACIN 400 MG PREMIX 200 ML IV SCH ×2 (05:23→13:26)
--- NOTE | 2017-06-05 08:26 | PD.ORT.PN ---
Subjective Subjective Remarks s/p I&D right leg - POD 2 -resting comfortably. no new complaints Objective Vitals Vital Signs Date Time Temp Pulse Resp B/P (MAP) Pulse Ox O2 Delivery O2 Flow Rate FiO2 06/05/17 04:00 97.8 86 16 110/61 (77) 98 06/05/17 00:00 97.9 71 16 107/61 (76) 99 06/04/17 20:00 Room Air 06/04/17 20:00 97.5 69 16 106/54 (71) 97 06/04/17 20:00 68 06/04/17 16:00 98.6 77 16 103/58 (73) 98 06/04/17 12:00 97.6 78 16 116/61 (79) 99 I/O 06/04/17 06/04/17 06/04/17 06/05/17 06/05/17 06/05/17 07:00 15:00 23:00 07:00 15:00 23:00 Intake Total 2095 ml 300 ml 1953 ml 855 ml Output Total 1220 ml 1401 ml 1900 ml Balance 875 ml 300 ml 552 ml -1045 ml Intake Oral 480 ml 600 ml 240 ml IV Total 1615 ml 300 ml 1353 ml 615 ml Output Urine Total 1100 ml 1300 ml 1850 ml Drainage Total 120 ml 101 ml 50 ml # Bowel Movements 1 1 Result Diagram: 06/04/1765406/04/17654 Objective Remarks RLE: dressings clean and dry. intact. NVI. +Drains x 2 Assessment & Plan Assessment and Plan 1) Cellulitis/Abscess of Right Lower Leg s/p I&D - POD 2 -maintain drains. drains will remain until at least thursday. will eval potential removal at that time -may begin daily dressing changes of leg POD 3 -WBAT -awaiting cultures for definitive Abx Treatment -appreciate Infectious Dz input on Abx and help tailoring Shawn Ellison Jun 05, 2017 08:26
[2017-06-05] MEDS: SODIUM CHLORIDE 0.9% FLUSH 10 ML FLUSH IV FLUSH SCH ×2 (09:00→21:00)
[2017-06-05] MEDS: DOCUSATE SODIUM 50 MG/SENNA 8.6 MG TAB PO SCH ×2 (10:22→21:09)
[2017-06-05 10:51] LABS: HEMATOCRIT 25.6 % (39.0-51.0); MEAN CELL VOLUME 90.8 FL (80.0-100.0); MEAN CORPUSCULAR HGB CONC 34.1 % (32.0-36.0); PLATELET COUNT 571 TH/MM3 (150-450); RED BLOOD COUNT 2.82 MIL/MM3 (4.50-5.90); RED CELL DISTRIBUTION WIDTH 13.9 % (11.6-17.2); REVIEW FLAG FINAL; WHITE BLOOD COUNT 7.6 TH/MM3 (4.0-11.0)
[2017-06-05 11:15] LABS: ANION GAP 6 MEQ/L (5-15); AST (GOT) 81 U/L (15-37); BICARBONATE 31.5 MEQ/L (21.0-32.0); BLOOD UREA NITROGEN 7 MG/DL (7-18); CHLORIDE 101 MEQ/L (98-107); GLOMERULAR FILTRATION RATE 139 ML/MIN (>89); POTASSIUM 3.8 MEQ/L (3.5-5.1); SODIUM (NA) 138 MEQ/L (136-145)
[2017-06-05 11:21] LABS: ALKALINE PHOSPHATASE 158 U/L (45-117); ALT (GPT) 60 U/L (12-78); TOTAL BILIRUBIN ADULT 0.6 MG/DL (0.2-1.0)
--- NOTE | 2017-06-05 15:32 | HHI.FPPN ---
Subjective Remarks No acute events overnight. [employer] computer used for translation as patient is [place] speaking. Patient denied any fevers or chills, CP, SOB, cough, states his pain has been relatively well controlled he stated his pain was at a 6/10. All questions from patient were answered. It was advised to him that he would need to follow up with a primary care physician until resolution of his infection and that physical therapy could work with him at home. (Eugene Ellis MD R2) Objective Vitals Vital Signs Date Time Temp Pulse Resp B/P (MAP) Pulse Ox O2 Delivery O2 Flow Rate FiO2 06/05/17 12:00 98.2 76 18 114/66 (82) 98 06/05/17 08:00 97.2 76 18 110/62 (78) 98 06/05/17 04:00 97.8 86 16 110/61 (77) 98 06/05/17 00:00 97.9 71 16 107/61 (76) 99 06/04/17 20:00 Room Air 06/04/17 20:00 97.5 69 16 106/54 (71) 97 06/04/17 20:00 68 06/04/17 16:00 98.6 77 16 103/58 (73) 98 I/O 06/04/17 06/04/17 06/04/17 06/05/17 06/05/17 06/05/17 07:00 15:00 23:00 07:00 15:00 23:00 Intake Total 2095 ml 300 ml 1953 ml 855 ml Output Total 1220 ml 1401 ml 1900 ml Balance 875 ml 300 ml 552 ml -1045 ml Intake Oral 480 ml 600 ml 240 ml IV Total 1615 ml 300 ml 1353 ml 615 ml Output Urine Total 1100 ml 1300 ml 1850 ml Drainage Total 120 ml 101 ml 50 ml # Bowel Movements 1 1 (Eugene Ellis MD R2) Result Diagram: 06/05/17 1005 06/05/17 1005 Objective Remarks GEN: NAD, lying comfortably in bed EYES: conjunctiva normal, EOMI. ENT: Mouth and pharynx normal. NEURO: Alert. Speech normal, [place] speaking, translation provided by [employer]. No focal deficits. CARDIOVASCULAR: RRR, no m/r/g. LUNGS: CTAB, no w/r/r GI: soft, nontender, nd MUSC: Right LE bandaged with an ZAIDA-wrap, 2 J-P drains in place with blood and serosanguinous fluid. Leg is swollen, barely able to move toes. (Eugene Ellis MD R2) A/P Assessment and Plan 32 year old man admitted with sepsis due to right lower extremity cellulitis and abscess formation POD #2 for I&D. Discharge Planning Anticipate discharge tomorrow on PO antibiotics (Clindamycin) and home with [facility] for physical therapy and nursing aid for daily dressing change and management of LINDSAY drains Patient will need financial assistance obtaining Clindamycin for total of 10 days (Eugene Ellis MD R2) Attending Attestation Patient seen and examined. Case reviewed and discussed with the resident team. Agree with plan of care as discussed with me and documented in the resident note. (Chyna Copeland MD) Problem List: (1) Abscess of right lower extremity ICD Codes: L02.415 - Cutaneous abscess of right lower limb Plan: Cellulitis/Abscess of Right Lower Leg s/p I&D - POD 2. I&D performed . Wound cx growing group A beta strep light growth; no anaerobes isolated Per orthopedics, will maintain LINDSAY drains for 7-10 days. Daily dressing changes start on postop day 3. Patient will follow up with orthopedic surgery as outpatient for removal of drains -Infectious disease consulted -IV Vanco day #5, IV Cipro and Flagyl day #4 have been discontinued today -Per infectious disease note and discussion via phone, will start patient on clindamycin 300 mg po q6h for 10 days which has been started inpatient for today -Clindamycin sensitivity ordered per infectious disease -Continue [place] and morphine when necessary for pain control -Weight bearing as tolerated per orthopedic surgery Antibiotic history: - Vancomycin 1500 mg IV q12h, started 05/31 - Ciprofloxacin 400 mg IV q12h, started 06/01 - Flagyl 500 mg IV q8h, started 06/01 (2) Anemia ICD Codes: D64.9 - Anemia, unspecified Plan: Hgb downtrending to 8.7 today (previous trend 12.3-12.0-10.4-8.7 today) Consider due to acute blood loss anemia in the postop period vs hemolytic process vs stress ulcer Consider a drug-induced cause of anemia Hgb on admission 14.0, would not expect a chronic etiology of anemia such as iron, folate, or B12 deficiency Patient is a non-alcoholic MCV at 90.8 today Will repeat CBC this afternoon Will transfuse if needed if Hgb < 7.0 after type and cross Obtain iron/tibc profile now Will get LDH and haptoglobin to evaluate for hemolytic process Obtain Hemoccult (3) Thrombocytosis ICD Codes: D47.3 - Essential (hemorrhagic) thrombocythemia Plan: Reactive thrombocytosis possibly post-surgical however platelet count decreased to 420,000 yesterday following surgery and now uptrended to 571,000 Consider cause due to acute blood loss, hemolytic process, or due to infection Repeat CBC this afternoon Obtain studies as above Consider peripheral smear if thrombocytosis does not resolve (4) Nutrition, metabolism, and development symptoms ICD Codes: R63.8 - Other symptoms and signs concerning food and fluid intake Plan: Fluids: NS at maintenance of 110 cc/hr Electrolytes: WNL, continue to monitor Nutrition: Regular diet DVT ppx: Lovenox 40 mg subq q24h GI ppx: Protonix 40 mg po daily (Eugene Ellis MD R2) Eugene Ellis MD R2 Jun 05, 2017 15:32 Chyna Copeland MD Jun 07, 2017 09:00
--- NOTE | 2017-06-05 16:39 | HHI.PR ---
Addendum to Inpatient Note Additional Information pt s cultures showed GAS Once cleared for dc by ortho switch to po clindamycin 300 mg q 6 hrs for [address] Krishnamurthy and resident dw microlab - clinda sensitivity ordered and need to be followed Demetria Tate MD Jun 05, 2017 16:39
[2017-06-05] MEDS ORDERED: EPINEPHrine HCL (1:1000) 1 MG/ML VIAL IM PRN (17:15)
[2017-06-05] MEDS: ENOXAPARIN SODIUM 40 MG/0.4 ML SYRINGE SQ SCH (17:31)
[2017-06-05] MEDS: CLINDAMYCIN 150 MG CAP PO SCH (17:53)
[2017-06-05] MEDS ORDERED: CEPHALEXIN MONOHYDRATE 500 MG CAP PO SCH (18:00)
[2017-06-05] MEDS: PANTOPRAZOLE SOD 40 MG DELAYED RELEASE TAB PO SCH (18:34)
[2017-06-05 18:37] LABS: LDH SERUM 200 U/L (87-241); TRANSFERRIN IRON PROFILE 145 MG/DL (200-360)
[2017-06-05 19:37] LABS: BASOPHIL % 0.6 % (0.0-2.0); EOSINOPHIL # 0.2 TH/MM3 (0-0.4); EOSINOPHIL % 2.4 % (0.0-4.0); HEMATOCRIT 26.2 % (39.0-51.0); HEMO FLAGS DIFF FINAL; LYMPH % 15.4 % (9.0-44.0); LYMPHOCYTE # 1.2 TH/MM3 (1.0-4.8); MEAN CELL VOLUME 91.4 FL (80.0-100.0); MEAN CORPUSCULAR HEMOGLOBIN 30.6 PG (27.0-34.0); MEAN CORPUSCULAR HGB CONC 33.5 % (32.0-36.0); MONO % 6.6 % (0.0-8.0); PLATELET COUNT 634 TH/MM3 (150-450); RED BLOOD COUNT 2.87 MIL/MM3 (4.50-5.90); RED CELL DISTRIBUTION WIDTH 13.4 % (11.6-17.2)
[2017-06-06] VITALS: BP 109/66; PULSE 80; RESP 20; TEMP 98.1; O2SAT 99
[2017-06-06] MEDS: CLINDAMYCIN 150 MG CAP PO SCH ×3 (00:18→13:18)
[2017-06-06] MEDS: SODIUM CHLOR 0.9% 1000 ML INJ 1,000 ML IV SCH ×2 (01:18→06:09)
[2017-06-06 04:00] VITALS: BP 113/65; PULSE 78; RESP 20; TEMP 98.4; O2SAT 99
[2017-06-06 05:40] LABS: AUTOMATED NEUTROPHIL # 5.9 TH/MM3 (1.8-7.7); BASOPHIL # 0.1 TH/MM3 (0-0.2); EOSINOPHIL # 0.2 TH/MM3 (0-0.4); EOSINOPHIL % 2.2 % (0.0-4.0); HEMATOCRIT 25.3 % (39.0-51.0); HEMO FLAGS DIFF FINAL; LYMPH % 14.6 % (9.0-44.0); LYMPHOCYTE # 1.2 TH/MM3 (1.0-4.8); MEAN CELL VOLUME 91.4 FL (80.0-100.0); MEAN CORPUSCULAR HEMOGLOBIN 32.1 PG (27.0-34.0); MEAN CORPUSCULAR HGB CONC 35.1 % (32.0-36.0); MONO % 8.4 % (0.0-8.0); NEUT % 73.8 % (16.0-70.0); PLATELET COUNT 594 TH/MM3 (150-450); RED BLOOD COUNT 2.77 MIL/MM3 (4.50-5.90); RED CELL DISTRIBUTION WIDTH 13.3 % (11.6-17.2); WHITE BLOOD COUNT 7.9 TH/MM3 (4.0-11.0)
[2017-06-06 05:55] LABS: ANION GAP 8 MEQ/L (5-15); AST (GOT) 153 U/L (15-37); BICARBONATE 28.5 MEQ/L (21.0-32.0); BLOOD UREA NITROGEN 6 MG/DL (7-18); CHLORIDE 103 MEQ/L (98-107); GLOMERULAR FILTRATION RATE 158 ML/MIN (>89); SODIUM (NA) 139 MEQ/L (136-145)
[2017-06-06 05:56] LABS: ALT (GPT) 113 U/L (12-78)
[2017-06-06 05:58] LABS: ALKALINE PHOSPHATASE 187 U/L (45-117); TOTAL BILIRUBIN ADULT 0.6 MG/DL (0.2-1.0)
[2017-06-06 08:00] VITALS: BP 121/72; PULSE 77; RESP 18; TEMP 98.4; O2SAT 98
--- NOTE | 2017-06-06 08:13 | HHI.DCPOC ---
Discharge Care Plan Diagnosis: (1) Sepsis (2) Abscess of right lower extremity (3) Anemia (4) Thrombocytosis Goals to Promote Your Health * To prevent worsening of your condition and complications, follow up with orthopedic surgery within 2-3 days for a post-operative visit and potential removal of your drains after leaving the hospital and follow up with a primary care physician within 3-5 days after leaving the hospital. You may follow up at [facility] located at [address] [place] [address] Chinchilla, Dr. Bruno, or Dr. Ellis and call [phone] to schedule an appointment. Directions to Meet Your Goals Take your medications as prescribed Follow your dietary instruction Follow activity as directed Keep your appointments as scheduled Take your immunizations and boosters as scheduled If your symptoms worsen call your PCP, if no PCP go to Urgent Care Center or Emergency Room Smoking is Dangerous to Your Health. Avoid second hand smoke Call the 24-hour hour crisis hotline for domestic abuse at Eugene Ellis MD R2 Jun 06, 2017 08:13
--- NOTE | 2017-06-06 08:15 | HHI.FF ---
Face to Face Verification Diagnosis: (1) Abscess of right lower extremity Physical Therapy Order: Evaluate and Treat, Improve ambulation, Strength and gait training Home Health Nursing Order: Wound care and dressing changes (Daily dressing changes and management of two LINDSAY drains in place) Nursing assessment with vital signs I have seen patient Gary Aguero on 06/06/17. My clinical findings support the need for the requested home health care services because: Limited ability to care for self Infection w/ risk of complications I certify that my clinical findings support that this patient is homebound because: Unsteady gait/balance Eugene Ellis MD R2 Jun 06, 2017 08:15
[2017-06-06] MEDS ORDERED: PANT40TA3 PO (08:17)
[2017-06-06] MEDS ORDERED: HYDR-3583 PO ×2 (08:17→11:59)
[2017-06-06] MEDS ORDERED: SENN1TAB PO (08:17)
[2017-06-06] MEDS ORDERED: CLIN150 PO (08:17)
--- NOTE | 2017-06-06 08:52 | HHI.FPPN ---
Subjective Remarks No acute events overnight. [employer] was used to translate for the patient as he is Kazakh speaking. Patient stated his pain is well controlled currently at about a 5-6/10. He did not have any other complaints. He specifically denied fevers/chills, CP, SOB, melena, visible blood in stools, abdominal pain. It was explained to the patient through the millwright that he is stable for discharge home today and the patient stated he felt comfortable going home. Explained to patient that home health care would be arranged for physical therapy and dressing changes and patient was informed to follow up with orthopedic surgery for follow up and removal of his LINDSAY drains and to follow up with a primary care physician. (Eugene Ellis MD R2) Objective Vitals Vital Signs Date Time Temp Pulse Resp B/P (MAP) Pulse Ox O2 Delivery O2 Flow Rate FiO2 06/06/17 08:00 98.4 77 18 121/72 (88) 98 06/06/17 04:00 Room Air 06/06/17 04:00 98.4 78 20 113/65 (81) 99 06/06/17 00:00 Room Air 06/06/17 00:00 98.1 80 20 109/66 (80) 99 06/05/17 21:00 Room Air 06/05/17 20:00 70 06/05/17 19:26 75 06/05/17 18:33 18 06/05/17 16:00 98.9 72 18 115/62 (79) 97 06/05/17 12:00 98.2 76 18 114/66 (82) 98 I/O 06/05/17 06/05/17 06/05/17 06/06/17 06/06/17 06/06/17 07:00 15:00 23:00 07:00 15:00 23:00 Intake Total 855 ml 300 ml 960 ml 887 ml Output Total 1900 ml 1500 ml 25 ml Balance -1045 ml 300 ml -540 ml 862 ml Intake Oral 240 ml 960 ml IV Total 615 ml 300 ml 887 ml Output Urine Total 1850 ml 1500 ml Drainage Total 50 ml 25 ml # Bowel Movements 2 (Eugene Ellis MD R2) Result Diagram: 06/06/1744106/06/17441 Objective Remarks GEN: NAD, lying comfortably in bed EYES: conjunctiva normal, EOMI. ENT: Mouth and pharynx normal. NEURO: Alert. Speech normal, Kazakh speaking, translation provided by [employer]. No focal deficits. CARDIOVASCULAR: RRR, no m/r/g. LUNGS: CTAB, no w/r/r GI: soft, nontender, nd MUSC: Right LE bandaged with an ZAIDA-wrap, 2 J-P drains in place with minimal blood and serosanguinous fluid. (Eugene Ellis MD R2) A/P Assessment and Plan 32 year old man admitted with sepsis due to right lower extremity cellulitis and abscess formation POD #3 for I&D. Discharge Planning Stable for discharge today on PO antibiotics (Clindamycin) and home with [facility] for physical therapy and nursing aid for daily dressing change and management of LINDSAY drains Patient will need financial assistance obtaining Clindamycin for an additional 9 days as an outpatient (Eugene Ellis MD R2) Attending Attestation Patient seen and examined. Case reviewed and discussed with the resident team. Agree with plan of care as discussed with me and documented in the resident note. (Chyna Copeland MD) Problem List: (1) Abscess of right lower extremity ICD Codes: L02.415 - Cutaneous abscess of right lower limb Plan: Cellulitis/Abscess of Right Lower Leg s/p I&D - POD 3 Wound cx growing group A beta strep light growth, susceptibility to follow as of 10 AM; no anaerobes isolated Per orthopedics, will maintain LINDSAY drains for 7-10 days. Daily dressing changes start on postop day 3 which is today. Patient will follow up with orthopedic surgery as outpatient for removal of drains -Infectious disease consulted -IV Vanco, IV Cipro and Flagyl discontinued -Per infectious disease note and discussion via phone, patient started on clindamycin 300 mg po q6h for 10 days (started 06/05) -Clindamycin sensitivity ordered per infectious disease -Continue [place] and morphine when necessary for pain control -[place] prn as an outpatient -Weight bearing as tolerated per orthopedic surgery -Will continue PT at home Antibiotic history: - Vancomycin 1500 mg IV q12h, 05/31 - 06/05 - Ciprofloxacin 400 mg IV q12h, 06/01 - 06/05 - Flagyl 500 mg IV q8h, 06/01 - 06/05 (2) Anemia ICD Codes: D64.9 - Anemia, unspecified Plan: Hgb had downtrending to 8.7 today yesterday, repeat Hgb -> 8.8 -> 8.9 Consider due to acute blood loss anemia in the postop period Normocytic Hgb on admission 14.0, would not expect a chronic etiology of anemia such as iron, folate, or B12 deficiency LDH 200 within normal limits Haptoglobin elevated at 346 Do not suspect a hemolytic anemia process Patient is a non-alcoholic Patient denying melena or blood in stools Iron panel indicating anemia of chronic disease Hgb remaining stable, will order repeat testing as an outpatient (3) Thrombocytosis ICD Codes: D47.3 - Essential (hemorrhagic) thrombocythemia Plan: Reactive thrombocytosis possibly post-surgical however platelet count decreased to 420,000 yesterday following surgery and now uptrended to 571,000 Platelets downtreded to 594,000 this AM from last check at 634,000 Peripheral smear review by pathologist, will follow up as an outpatient Repeat CBC with diff in 2-3 days (4) Nutrition, metabolism, and development symptoms ICD Codes: R63.8 - Other symptoms and signs concerning food and fluid intake Plan: Fluids: PO Electrolytes: WNL Nutrition: Regular diet DVT ppx: Lovenox 40 mg subq q24h GI ppx: Protonix 40 mg po daily (Eugene Ellis MD R2) Eugene Ellis MD R2 Jun 06, 2017 08:52 Chyna Copeland MD Jun 07, 2017 09:01
[2017-06-06] MEDS: SODIUM CHLORIDE 0.9% FLUSH 10 ML FLUSH IV FLUSH SCH (09:22)
[2017-06-06] MEDS: DOCUSATE SODIUM 50 MG/SENNA 8.6 MG TAB PO SCH (09:22)
[2017-06-06] MEDS: PANTOPRAZOLE SOD 40 MG DELAYED RELEASE TAB PO SCH (09:22)
[2017-06-06 12:00] VITALS: BP 106/55; PULSE 64; RESP 18; TEMP 98.7; O2SAT 99
[2017-06-06] MEDS ORDERED: Vancomycin Consult Pharmacy 1 EA OTHER PRN (14:00)
[2017-06-06] MEDS ORDERED: PHARMACY ORDERED LAB ONE (14:45)
[2017-06-06] MEDS: ACETAMINOPHEN/HYDROcodone 325 MG/10 MG TAB PO PRN (15:54)
[2017-06-06 16:00] VITALS: BP 110/57; PULSE 63; RESP 18; TEMP 98.7; O2SAT 97
[2017-06-06] MEDS ORDERED: VANCOMYCIN 1,500 MG/NS 500 ML IV SCH ×2 (16:00)
[2017-06-06] MEDS ORDERED: LEVA750T9 PO (16:02)
--- NOTE | 2017-06-06 16:08 | HHI.PR ---
Addendum to Inpatient Note Additional Information GRAM STAIN Final 06/04/17 MANY WBC'S MANY GRAM POSITIVE COCCI IN PAIRS, CLUSTERS AND CHAINS WOUND CULTURE Final 06/06/17 LIGHT GROWTH GROUP A BETA STREP (PRESUMPTIVE ID) WOUND CULTURE Final (continued) 06/06/17 GP A STREP M.I.C. RX --------- --- PENICILLIN G <0.03 S CEFTRIAXONE <0.25 S ERYTHROMYCIN >0.5 R CLINDAMYCIN <0.06 R VANCOMYCIN 0.5 S CHLORAMPHENICOL 2 S LEVOFLOXACIN <0.25 S Cant d/c on clindamycin Will switch to levaquin po x 10-14 days Pt has to be provided with Levaquine, substuituion to [facility] is not going to work OK to dc pt once levaquine is arranged Demetria Tate MD Jun 06, 2017 16:08
--- NOTE | 2017-06-07 14:23 | HHI.DS ---
Discharge Summary Admission Date May 31, 2017 at 16:10 Discharge Date: Jun 06, 2017 Admitting Diagnosis right lower extremity cellulitis, hyponatremia, hypokalemia (1) Abscess of right lower extremity Diagnosis: Principal Plan: Cellulitis/Abscess of Right Lower Leg s/p I&D - POD 3 Wound cx growing group A beta strep light growth, susceptibility to follow as of 06/06 AM; no anaerobes isolated Per orthopedics, will maintain LINDSAY drains for 7-10 days. Daily dressing changes start on postop day 3 which is today. Patient will follow up with orthopedic surgery as outpatient for removal of drains -Infectious disease consulted -IV Vanco, IV Cipro and Flagyl discontinued -Per infectious disease note and discussion via phone, patient started on clindamycin 300 mg po q6h for 10 days (started 06/05) -Clindamycin sensitivity ordered per infectious disease -Continue Montchanin and morphine when necessary for pain control -Montchanin prn as an outpatient -Weight bearing as tolerated per orthopedic surgery -Will continue PT at home Antibiotic history: - Vancomycin 1500 mg IV q12h, 05/31 - 06/05 - Ciprofloxacin 400 mg IV q12h, 06/01 - 06/05 - Flagyl 500 mg IV q8h, 06/01 - 06/05 ICD Codes: L02.415 - Cutaneous abscess of right lower limb (2) Anemia Diagnosis: Secondary Plan: Hgb had downtrending to 8.7 today yesterday, repeat Hgb -> 8.8 -> 8.9 Consider due to acute blood loss anemia in the postop period Normocytic Hgb on admission 14.0, would not expect a chronic etiology of anemia such as iron, folate, or B12 deficiency LDH 200 within normal limits Haptoglobin elevated at 346 Do not suspect a hemolytic anemia process Patient is a non-alcoholic Patient denying melena or blood in stools Iron panel indicating anemia of chronic disease Hgb remaining stable, will order repeat testing as an outpatient ICD Codes: D64.9 - Anemia, unspecified (3) Thrombocytosis Diagnosis: Secondary Plan: Reactive thrombocytosis possibly post-surgical however platelet count decreased to 420,000 yesterday following surgery and now uptrended to 571,000 Platelets downtreded to 594,000 this AM from last check at 634,000 Peripheral smear review by pathologist, will follow up as an outpatient Repeat CBC with diff in 2-3 days ICD Codes: D47.3 - Essential (hemorrhagic) thrombocythemia (4) Nutrition, metabolism, and development symptoms Diagnosis: Secondary Plan: Fluids: PO Electrolytes: WNL Nutrition: Regular diet DVT ppx: Lovenox 40 mg subq q24h GI ppx: Protonix 40 mg po daily ICD Codes: R63.8 - Other symptoms and signs concerning food and fluid intake Consultants Infectious Disease, Orthopedic Surgery Brief History Patient is a 32 year old man presenting to the ED for evaluation of right lower extremity redness and swelling. He states the Thursday before last he started feeling pain in his right leg around 7pm. He did not notice erythema or swelling at this time. He went to work on thursday and noticed swelling and could not continue working due to worsening pain. He denies any trauma, cuts, or abrasions to the right leg. He states last Thursday patient was taken to [facility] and patient was sent home with medication for pain control however states was not sent home with any antibiotics to take. He endorses intermittent subjective fevers recently. He denies any previous history of cellulitis. Denies h/o of blood clots. He states he has not had any pus or other drainage anywhere along his right leg. Currently he states his pain is 10/ 10. CBC/BMP: 06/06/17 0442 06/06/17 0442 Significant Findings Laboratory Tests Test 06/05/17 10:05 06/05/17 18:31 06/06/17 04:42 Red Blood Count 2.82 MIL/MM3 (4.50-5.90) 2.87 MIL/MM3 (4.50-5.90) 2.77 MIL/MM3 (4.50-5.90) Hemoglobin 8.7 GM/DL (13.0-17.0) 8.8 GM/DL (13.0-17.0) 8.9 GM/DL (13.0-17.0) Hematocrit 25.6 % (39.0-51.0) 26.2 % (39.0-51.0) 25.3 % (39.0-51.0) Platelet Count 571 TH/MM3 (150-450) 634 TH/MM3 (150-450) 594 TH/MM3 (150-450) Haptoglobin 346 MG/DL (30-200) Random Glucose 111 MG/DL (74-106) Total Protein 5.8 GM/DL (6.4-8.2) 6.1 GM/DL (6.4-8.2) Albumin 1.7 GM/DL (3.4-5.0) 1.8 GM/DL (3.4-5.0) Calcium Level 8.2 MG/DL (8.5-10.1) 8.3 MG/DL (8.5-10.1) Alkaline Phosphatase 158 U/L (45-117) 187 U/L (45-117) Aspartate Amino Transf (AST/SGOT) 81 U/L (15-37) 153 U/L (15-37) Iron Level 49 MCG/DL (65-175) Total Iron Binding Capacity 203 MCG/DL (250-450) Ferritin 569 NG/ML (26-388) Neutrophils (%) (Auto) 75.0 % (16.0-70.0) 73.8 % (16.0-70.0) Monocytes (%) (Auto) 8.4 % (0.0-8.0) Blood Urea Nitrogen 6 MG/DL (7-18) Creatinine 0.59 MG/DL (0.60-1.30) Alanine Aminotransferase (ALT/SGPT) 113 U/L (12-78) Imaging Lower extremity US 05/31: No evidence of DVT. Right inguinal LAD. Lower extremity CT 06/01: Elongated anterior inflammatory multiloculated cystic- type mass extending from the level of the knee down to almost to the ankle between the subcutaneous skin tissues and muscle along the fascial plane. Appearance is that most likely of an abscess. This does abut without destructive change the bone of the tibia proximal one third anterior medially. PE at Discharge GEN: NAD, lying comfortably in bed EYES: conjunctiva normal, EOMI. ENT: Mouth and pharynx normal. NEURO: Alert. Speech normal, Salvadorean speaking, translation provided by [employer]. No focal deficits. CARDIOVASCULAR: RRR, no m/r/g. LUNGS: CTAB, no w/r/r GI: soft, nontender, nd MUSC: Right LE bandaged with an ZAIDA-wrap, 2 J-P drains in place with minimal blood and serosanguinous fluid. Hospital Course Patient was started on Vancomycin IV on admission following blood cultures being obtained. Lower extremity CT was obtained with findings documented as above due to concern for septic arthritis and possible gas formation noted on exam. The patient was started on Zosyn IV in addition to Vancomycin for gram negative and anaerobic coverage. Nursing reported the patient had a hives-like reaction shortly after Zosyn started to be infused and Zosyn was promptly discontinued. Infectious Disease was thus consulted for recommendations on antibiotic therapy given the patient having an allergy to Zosyn which also precluded us from using Cephalosporins. The patient was started on Cipro and Flagyl in addition to Vancomycin which were all continued by infectious disease. Orthopedic surgery was consulted for surgical intervention and performed and irrigation and debridement of right thigh abscess and irrigation and debridement of right calf abscess on 06/03. Would culture was sent. Physical therapy evaluated the patient and recommended C for PT with a wheeled walker. After discussion with infectious disease, it was decided to start the patient on PO Clindamycin for discharge although it was known there may be a risk for Clindamycin resistance. Wound culture sensitivities returned showing resistance to Clindamycin and per infectious disease decision was made to discharge the patient on PO Levaquin for an additional 14 days which sensitivities show susceptibility towards. Blood cultures remained no growth after 5 days. The patient's Hgb downtrended from 12.0 preop -> 10.4 post -> next day 8.7 but remained stable thereafter x2 prior to discharge. Repeat CBC was ordered in 2-3 days after discharge. Patient was instructed using a [employer] interpreter that he would need to follow up with orthopedic surgery in 2-3 days after discharge for post-op follow up and removal of his 2 LINDSAY drains as well as needing to establish and follow up with a primary care physician. Pt Condition on Discharge: Stable Discharge Disposition: Discharge Home Discharge Instructions DIET: Follow Instructions for: As Tolerated, No Restrictions Activities you can perform: Weight Bearing as Kathi Follow up Referrals: Orthopedics - 2-3 Days with Hunter Krishnamurthy MD PCP Follow-up - 3-5 Days with Irving Chinchilla MD, R3 New Orders: CBC WITH DIFF - 2-3 Days Physical Therapy New Medications: Levofloxacin (Levaquin) 750 Mg Tablet 750 MG PO DAILY for Infection for 14 Days, #14 TAB 0 Refills Hydrocodone-Acetaminophen (Hydrocodone-Acetaminophen) 10-325 mg Tab 1 TAB PO Q4H PRN for PAIN SCALE 6 TO 10, #21 TAB Pantoprazole (Pantoprazole) 40 Mg Tab 40 MG PO DAILY, #28 TAB Sennosides-Docusate Sodium (Senna Plus 8.6-50 mg) 8.6 Mg-50 Mg Tab 1 TAB PO BID, #60 TAB Eugene Ellis MD R2 Jun 07, 2017 14:23
== END 2017-06-06 21:41 | disposition home or self-care (01) | DRG 854 ==
LOC: NEPE 12:50 → NEDA 16:10 → N04B 18:35
PROVIDERS: ADMIT Family Medicine; ATTEND Family Medicine
PROC: 0JBN0ZZ Excision of Right Lower Leg Subcutaneous Tissue and Fascia, Open Approach (ICD-10-PCS; 2017-06-03)
PROC: 0JBL0ZZ Excision of Right Upper Leg Subcutaneous Tissue and Fascia, Open Approach (ICD-10-PCS; principal; 2017-06-03 09:07)
DX: A41.9 Sepsis, unspecified organism (principal); E87.1 Hypo-osmolality and hyponatremia; L02.415 Cutaneous abscess of right lower limb; L03.115 Cellulitis of right lower limb; D63.8 Anemia in other chronic diseases classified elsewhere; D47.3 Essential (hemorrhagic) thrombocythemia; D50.0 Iron deficiency anemia secondary to blood loss (chronic); E53.8 Deficiency of other specified B group vitamins; E87.6 Hypokalemia; D75.89 Other specified diseases of blood and blood-forming organs
CPT/HCPCS: 73701; 80048; 80053; 80202; 82728; 83010; 83540; 83550; 83605; 83615; 85007; 85025; 85027; 85060; 87015; 87040; 87070; 87102; 87116; 87176; 87184; 87186; 87205; 87206; 90714; 93971; 94150; J0131; J0744; J1200; J1580; J1650; J2270; J2370; J2405; J2543; J3010; J3370; J7030; J7040; J7050; J7120; Q9967